=== PATIENT | male | born 1960 | race Caucasian/White ===

== ENCOUNTER 2017-02-26 11:44 | Emergency (ER) | payer OTHER ==
[~2017-02-26] VITALS: Ht 185.4 cm; Wt 94.0 kg
[~2017-02-26 11:44] MED LIST: AMBI5TAB PO; ASPI325T PO; AZOR5TAB4 PO; BACT800T5 PO; DOXY100T PO; MOBI15TA PO
[2017-02-26 12:00] VITALS: BP 144/71; PULSE 75; RESP 16; TEMP 98.3; O2SAT 96
[2017-02-26] MEDS ORDERED: SULFAMETHOXAZOLE-TRIMETHOPRIM DS 800-160 MG TAB PO ONE (13:00)
[2017-02-26] MEDS ORDERED: CEPHALEXIN MONOHYDRATE 500 MG CAP PO ONE (13:00)
[2017-02-26] MEDS ORDERED: BACT800T5 PO (13:03)
[2017-02-26] MEDS ORDERED: CEPH-460 PO (13:03)
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
[2017-02-26 13:20] VITALS: BP 111/66; PULSE 67; RESP 14; O2SAT 99
== END 2017-02-26 13:34 | disposition home or self-care (01) ==
LOC: PHED 11:44
DX: L03.113 Cellulitis of right upper limb (principal); I10 Essential (primary) hypertension; I25.2 Old myocardial infarction; Z87.39 Personal history of other diseases of the musculoskeletal system and connective tissue; Z86.59 Personal history of other mental and behavioral disorders; Z86.79 Personal history of other diseases of the circulatory system
CPT/HCPCS: 99283

== ENCOUNTER 2017-04-20 22:36 | Inpatient (IN) | payer SELFPAY ==
[~2017-04-20] VITALS: Ht 185.4 cm; Wt 99.2 kg
[~2017-04-20 22:36] MED LIST changes: -AMBI5TAB PO; -ASPI325T PO; -AZOR5TAB4 PO; +CEPH-460 PO; -DOXY100T PO; -MOBI15TA PO
[2017-04-20 22:41] VITALS: BP 119/88; PULSE 181; RESP 20; TEMP 98.2; O2SAT 95
[2017-04-20 22:42] VITALS: BP 110/90; PULSE 182; RESP 20; O2SAT 98
[2017-04-20] MEDS ORDERED: ADENOSINE IV SOLN 3 MG/ML 2 ML VIAL IV PUSH ONE (23:00)
[2017-04-20] MEDS ORDERED: SODIUM CHLORIDE 0.9% FLUSH 10 ML FLUSH IVF PRN (23:00)
[2017-04-20] MEDS ORDERED: SODIUM CHLOR 0.9% 1000 ML INJ 1,000 ML IV SCH ×2 (23:00→23:45)
[2017-04-20 23:02] VITALS: BP 137/91; PULSE 94; RESP 18; O2SAT 96
[2017-04-20 23:07] LABS: AUTOMATED NEUTROPHIL # 4.2 TH/MM3 (1.8-7.7); BASOPHIL # 0.1 TH/MM3 (0-0.2); BASOPHIL % 1.1 % (0.0-2.0); EOSINOPHIL # 0.1 TH/MM3 (0-0.4); EOSINOPHIL % 1.2 % (0.0-4.0); HEMATOCRIT 36.3 % (39.0-51.0); LYMPH % 17.2 % (9.0-44.0); MEAN CELL VOLUME 75.4 FL (80.0-100.0); MEAN CORPUSCULAR HEMOGLOBIN 24.3 PG (27.0-34.0); MEAN CORPUSCULAR HGB CONC 32.2 % (32.0-36.0); MONO % 8.1 % (0.0-8.0); NEUT % 72.4 % (16.0-70.0); PLATELET COUNT 278 TH/MM3 (150-450); RED BLOOD COUNT 4.81 MIL/MM3 (4.50-5.90); RED CELL DISTRIBUTION WIDTH 20.5 % (11.6-17.2); WHITE BLOOD COUNT 5.9 TH/MM3 (4.0-11.0)
[2017-04-20 23:11] LABS: HEMO FLAGS AUTO DIFF
[2017-04-20 23:21] LABS: CHLORIDE 103 MEQ/L (98-107); POTASSIUM 4.6 MEQ/L (3.5-5.1); SODIUM (NA) 138 MEQ/L (136-145)
--- NOTE | 2017-04-20 23:21 | RADRPT ---
EXAM DATE/TIME: 04/20/2017 23:10 [place] COMPARISON: CHEST SINGLE AP, September 21, 2015, 21:54. INDICATIONS : Chest pain. MEDICAL HISTORY : None. SURGICAL HISTORY : None. ENCOUNTER: Initial ACUITY: 1 day PAIN SCORE: 7/10 LOCATION: Bilateral chest FINDINGS: A single view of the chest demonstrates diminished lung volumes. Bibasilar subsegmental atelectasis v ersus scarring. Heart normal in size. Osseous structures are intact. CONCLUSION: 1. Bibasilar subsegmental atelectasis versus scarring greater in the right lower lobe. Demetrius Moreno MD on April 20, 2017 at 23:18 Board Certified Radiologist. This report was verified electronically.
[2017-04-20 23:25] LABS: ANION GAP 9 MEQ/L (5-15); BICARBONATE 26.4 MEQ/L (21.0-32.0)
[2017-04-20 23:26] LABS: BLOOD UREA NITROGEN 16 MG/DL (7-18)
[2017-04-20 23:28] LABS: ALT (GPT) 19 U/L (12-78)
[2017-04-20 23:29] LABS: AST (GOT) 17 U/L (15-37); GLOMERULAR FILTRATION RATE 69 ML/MIN (>89)
[2017-04-20 23:30] LABS: TOTAL BILIRUBIN ADULT 0.2 MG/DL (0.2-1.0)
[2017-04-20 23:31] LABS: ALKALINE PHOSPHATASE 115 U/L (45-117)
[2017-04-20 23:32] LABS: PLATELET ESTIMATE SMEAR NORMAL (NORMAL); PLATELET MORPHOLOGY NORMAL (NORMAL); SCAN/DIFF AUTO DIFF CONFIRMED
[2017-04-20 23:33] LABS: APTT (PATIENT) 30.8 SEC (24.3-30.1); PROTHROMBIN TIME - PATIENT 10.9 SEC (9.8-11.6)
[2017-04-20 23:42] LABS: CREATINE KINASE 31 U/L (39-308)
[2017-04-20] MEDS ORDERED: VANCOMYCIN INJ 1,000 MG in SODIUM CHLOR 0.9% 250 ML INJ 250 ML IV ONE (23:45)
[2017-04-20] MEDS ORDERED: PIPERACIL-TAZO 3.375 GM PREMIX 50 ML IV ONE (23:45)
[2017-04-20 23:48] VITALS: BP 125/72; PULSE 88; RESP 16; O2SAT 92
--- NOTE | 2017-04-20 23:51 | PD ---
HPI Chief Complaint: Cardiac Complaint Time Seen by Provider: 22:50 Travel History International Travel<30 days: No Contact w/Intl Traveler<30days: No Traveled to known affect area: No History of Present Illness HPI 56-year-old man, presents to the emergency department complaining of feeling his heart was fluttering. He states he had symptoms last night. The Neurontin happening in tonight new or worsened typical. He is a chronic wound on the right hand is been bothering him off and on for some time. She worse recently and he was placed on antibiotics in the past several days. He still taking antibiotics for that. He states despite that the pain drainage from the hand is been getting worse. He has a little bit tightness in his chest but no actual chest pain. He reports a history of IV drug use but nothing recently. Denies any recent illicit drug use. States he is a history of chronic back and neck problems and list multiple musculoskeletal conditions and rheumatoid arthritis. Denies any history of heart or lung problems. He states one time and is in the hospital he had trouble with an abnormal rhythm. History Past Medical History Narrative Medical History of IV drug use in the past Extensive muscular skeletal surgeries and injuries in the past Stated history of rheumatoid arthritis Review of records shows previous HI in 2006 Social History Alcohol Use: No Tobacco Use: No Allergies-Medications (Allergen,Severity, Reaction): Coded Allergies: No Known Allergies (Verified , 04/20/17) Reported Meds & Prescriptions Reported Meds & Active Scripts Active Keflex (Cephalexin) 500 Mg Cap 500 Mg PO Q6H 14 Days Bactrim DS (Sulfamethoxazole-Trimethoprim) 800-160 Mg Tab 1 Tab PO BID 14 Days Review of Systems Except as stated in HPI: all other systems reviewed are Neg Physical Exam Narrative GENERAL: Is an ill appearing 56 year-old man, pale clammy. SKIN: Focused skin assessment warm/dry. HEAD: Atraumatic. Normocephalic. EYES: Pupils equal and round. Scleral pallor. ENT: No nasal bleeding or discharge. Mucous membranes pink and moist. NECK: Trachea midline. No JVD. CARDIOVASCULAR: Heart rate rapid in the 180s. No appreciable murmur. Perfusion is overall poor. RESPIRATORY: No accessory muscle use. Clear to auscultation. Breath sounds equal bilaterally. GASTROINTESTINAL: Abdomen soft, non-tender, nondistended. Hepatic and splenic margins not palpable. MUSCULOSKELETAL: No obvious deformities. No edema. Extensive scarring on his upper extremities. Some of this appears to be from track [place]an[place], a lot of it appears to be from previous musculoskeletal injuries or possibly I&D surgeries. On the dorsum of the right hand there is a large ulcerated chronic appearing wound was undermined edges. Surrounding this is acute erythema with patchy erythematous migrating up the arm. NEUROLOGICAL: Awake and alert. No obvious cranial nerve deficits. Motor grossly within normal limits. Normal speech. PSYCHIATRIC: Appropriate mood and affect; insight and judgment normal. Data Data Last Documented VS Vital Signs Date Time Temp Pulse Resp B/P Pulse Ox O2 Delivery O2 Flow Rate FiO2 04/20/17 23:48 88 16 125/72 92 Room Air 04/20/17 22:41 98.2 Orders Electrocardiogram (04/20/17 22:50) Ckmb (Isoenzyme) Profile (04/20/17 22:50) Complete Blood Count With Diff (04/20/17 22:50) Comprehensive Metabolic Panel (04/20/17 22:50) Magnesium (Mg) (04/20/17 22:50) Prothrombin Time / Inr (Pt) (04/20/17 22:50) Act Partial Throm Time (Ptt) (04/20/17 22:50) Troponin I (04/20/17 22:50) Chest, Single Ap (04/20/17 22:50) Ecg Monitoring (04/20/17 22:50) Iv Access Insert/Monitor (04/20/17 22:50) Oximetry (04/20/17 22:50) Oxygen Administration (04/20/17 22:50) Sodium Chloride 0.9% Flush (Ns Flush) (04/20/17 23:00) Sodium Chlor 0.9% 1000 Ml Inj (Ns 1000 M (04/20/17 23:00) Adenosine Inj (Adenocard Inj) (04/20/17 23:00) Drug Screen, Random Urine (04/20/17 22:53) Vancomycin Inj (Vancomycin Inj) (04/20/17 23:45) Piperacil-Tazo 3.375 Gm Premix (Zosyn 3. (04/20/17 23:45) Blood Culture (04/20/17 23:40) Sodium Chlor 0.9% 1000 Ml Inj (Ns 1000 M (04/20/17 23:45) Admit Order (Ed Use Only) (04/21/17 ) Piperacil-Tazo 3.375 Gm Premix (Zosyn 3. (04/21/17 00:15) Vancomycin Consult Pharmacy (Vancomycin (04/21/17 00:15) Labs Laboratory Tests Test 04/20/17 23:00 White Blood Count 5.9 TH/MM3 Red Blood Count 4.81 MIL/MM3 Hemoglobin 11.7 GM/DL Hematocrit 36.3 % Mean Corpuscular Volume 75.4 FL Mean Corpuscular Hemoglobin 24.3 PG Mean Corpuscular Hemoglobin 32.2 % Concent Red Cell Distribution Width 20.5 % Platelet Count 278 TH/MM3 Mean Platelet Volume 6.9 FL Neutrophils (%) (Auto) 72.4 % Lymphocytes (%) (Auto) 17.2 % Monocytes (%) (Auto) 8.1 % Eosinophils (%) (Auto) 1.2 % Basophils (%) (Auto) 1.1 % Neutrophils # (Auto) 4.2 TH/MM3 Lymphocytes # (Auto) 1.0 TH/MM3 Monocytes # (Auto) 0.5 TH/MM3 Eosinophils # (Auto) 0.1 TH/MM3 Basophils # (Auto) 0.1 TH/MM3 CBC Comment AUTO DIFF Differential Comment AUTO DIFF CONFIRMED Platelet Estimate NORMAL Platelet Morphology Comment NORMAL Prothrombin Time 10.9 SEC Prothromb Time International 1.0 RATIO Ratio Activated Partial 30.8 SEC Thromboplast Time Sodium Level 138 MEQ/L Potassium Level 4.6 MEQ/L Chloride Level 103 MEQ/L Carbon Dioxide Level 26.4 MEQ/L Anion Gap 9 MEQ/L Blood Urea Nitrogen 16 MG/DL Creatinine 1.10 MG/DL Estimat Glomerular Filtration 69 ML/MIN Rate Random Glucose 114 MG/DL Calcium Level 9.4 MG/DL Magnesium Level 2.0 MG/DL Total Bilirubin 0.2 MG/DL Aspartate Amino Transf 17 U/L (AST/SGOT) Alanine Aminotransferase 19 U/L (ALT/SGPT) Alkaline Phosphatase 115 U/L Total Creatine Kinase 31 U/L Troponin I LESS THAN 0.02 NG/ML Total Protein 8.6 GM/DL Albumin 3.4 GM/DL MDM Medical Decision Making Medical Screen Exam Complete: Yes Emergency Medical Condition: Yes Interpretation(s) My review of initial EKG: SVT a rate of 179, no obvious ischemia. Normal axis. My review of repeat EKG following chemical cardioversion: Normal sinus rhythm at a rate of 88, normal axis, normal intervals, no acute ischemia. LABS: CBC remarkable for mild anemia. CMP generally unremarkable. Troponin negative. Elevated total protein Chest x-ray: Bibasilar subsegmental atelectasis versus scarring, greater in the right lower lobe. Differential Diagnosis Infection, bacteremia or sepsis, SVT, adverse effect of illicit drugs, sedative hypnotic withdrawal, other Narrative Course Medical decision-making this is a 56 year woman who presents to the emergency department in [place] with an ill appearance. IV access was difficult to multiple previous upper extremity surgeries and history of IV drug use. Some suspicion that he may still be using the patient denies. He has worsening cellulitis in his right hand is not responding outpatient Bactrim and Keflex. Distress may have been what prompted the SVT. SVT resolved with adenosine but I think he needs to be admitted for worsening right upper extremity cellulitis. Procedures Procedure Narrative Peripheral IV access: Nursing staff unable to establish IV access. Emergent IV access needed for cardioversion. Right EJ was prepped with chlorhexidine. Initial attempt with a 20 was unsuccessful. Second attempt with Valsalva was successful. Blood obtained for diagnostic testing. Patient tolerated well. Chemical cardioversion: Patient was placed on continuous monitoring. Patient was placed on defibrillator monitor. IV access was established. 6 kg of IV adenosine was given rapid IV push followed by 20 mL normal saline flush. Patient was successfully cardioverted to normal sinus rhythm. Diagnosis Primary Impression: SVT (supraventricular tachycardia) Additional Impression: Cellulitis of right upper extremity Admitting Information Admitting Physician Requests: Romero Ramos MD Apr 20, 2017 23:51
[2017-04-21] VITALS (7 sets, daily range): BP systolic 97–137; BP diastolic 59–79; PULSE 59–78; RESP 16–18; TEMP 96.7–97.8; O2SAT 94–100
[2017-04-21] MEDS ORDERED: ACETAMINOPHEN 325 MG TAB PO PRN (00:15)
[2017-04-21] MEDS ORDERED: MAGNESIUM HYDROXIDE SUSP 30 ML CUP PO PRN (00:15)
[2017-04-21] MEDS ORDERED: Vancomycin Consult Pharmacy 1 EA OTHER SCH (00:15)
[2017-04-21] MEDS ORDERED: SODIUM CHLORIDE 0.9% FLUSH 10 ML FLUSH IV FLUSH PRN (00:15)
[2017-04-21] MEDS ORDERED: SENNOSIDES 8.6 MG TAB PO PRN (00:15)
[2017-04-21] MEDS ORDERED: ASPI81CH CHEW (01:09)
[2017-04-21] MEDS ORDERED: MORP1TAB24 PO (01:09)
[2017-04-21] MEDS ORDERED: OXYC-396 PO (01:09)
[2017-04-21] MEDS ORDERED: CYCL1TAB29 PO (01:09)
[2017-04-21] MEDS ORDERED: VANCOMYCIN 1,000 MG/NS 250 ML IV ONE ×2 (03:05)
[2017-04-21] MEDS ORDERED: MORPHINE SULFATE 4 MG/ML INJ IV PUSH PRN (03:15)
[2017-04-21] MEDS: MORPHINE SULFATE 8 MG/ML INJ IV PUSH PRN ×2 (03:24→08:56)
[2017-04-21] MEDS: PIPERACIL-TAZO 3.375 GM PREMIX 50 ML IV SCH ×3 (05:33→17:32)
[2017-04-21 06:36] LABS: POTASSIUM 4.4 MEQ/L (3.5-5.1)
[2017-04-21 06:44] LABS: BICARBONATE 29.8 MEQ/L (21.0-32.0)
[2017-04-21 06:53] LABS: AUTOMATED NEUTROPHIL # 2.5 TH/MM3 (1.8-7.7); BASOPHIL % 0.6 % (0.0-2.0); EOSINOPHIL # 0.1 TH/MM3 (0-0.4); EOSINOPHIL % 2.1 % (0.0-4.0); HEMATOCRIT 29.7 % (39.0-51.0); LYMPHOCYTE # 0.9 TH/MM3 (1.0-4.8); MEAN CELL VOLUME 75.1 FL (80.0-100.0); MEAN CORPUSCULAR HEMOGLOBIN 24.7 PG (27.0-34.0); MEAN CORPUSCULAR HGB CONC 32.8 % (32.0-36.0); NEUT % 62.3 % (16.0-70.0); PLATELET COUNT 247 TH/MM3 (150-450); RED BLOOD COUNT 3.95 MIL/MM3 (4.50-5.90); RED CELL DISTRIBUTION WIDTH 20.5 % (11.6-17.2); WHITE BLOOD COUNT 3.9 TH/MM3 (4.0-11.0)
[2017-04-21 06:54] LABS: HEMO FLAGS AUTO DIFF
[2017-04-21 07:06] LABS: CREATINE KINASE 23 U/L (39-308)
[2017-04-21 07:30] LABS: SCAN/DIFF AUTO DIFF CONFIRMED
[2017-04-21] MEDS: ENOXAPARIN SODIUM 40 MG/0.4 ML SYRINGE SQ SCH (08:54)
[2017-04-21] MEDS: SODIUM CHLORIDE 0.9% FLUSH 10 ML FLUSH IV FLUSH SCH ×2 (08:56→21:00)
--- NOTE | 2017-04-21 08:57 | EKG ---
Date Performed: 04/21/2017 Time Performed: 04:45:19 PTAGE: 56 years EKG: Sinus rhythm NORMAL ECG PREVIOUS TRACING : 04/20/2017 23.06 DOCTOR: Romero Love Interpretating Date/Time 04/21/2017 08:55:29
--- NOTE | 2017-04-21 09:16 | EKG ---
Date Performed: 04/20/2017 Time Performed: 23:06:03 PTAGE: 56 years EKG: Sinus rhythm NORMAL ECG PREVIOUS TRACING : 04/20/2017 22.50 DOCTOR: Romero Love Interpretating Date/Time 04/21/2017 09:16:06
--- NOTE | 2017-04-21 09:19 | EKG ---
Date Performed: 04/20/2017 Time Performed: 22:50:20 PTAGE: 56 years EKG: SUPRAVENTRICULAR TACHYCARDIA ABNORMAL RHYTHM ECG INTERPRETATION BASED ON A DEFAULT AGE OF 4 0 YEARS PREVIOUS TRACING : 12/26/2014 18.53 DOCTOR: Romero Love Interpretating Date/Time 04/21/2017 09:18:34
[2017-04-21 11:21] LABS: CREATINE KINASE 24 U/L (39-308)
--- NOTE | 2017-04-21 11:53 | HHI.HP ---
[facility] Service [facility] Primary Care Physician No Primary Care Physician Admission Diagnosis cellulitis, SVT Diagnoses: (1) SVT (supraventricular tachycardia) Diagnosis: Principal (2) Open wound of right hand Diagnosis: Principal (3) Chronic pain Diagnosis: Secondary Chief Complaint: Heart racing Travel History International Travel<30 Days: No Contact w/Intl Traveler <30 Da: No Traveled to Known Affected Are: No History of Present Illness Written by Gerardo Mujica, acting as scribe for Dr. Johnston on 04/21/17 at 11:52. 56 year-old male with known history of chronic pain, chronic wound of the right hand who presented to hospital because of heart racing and palpitations. Patient states that his normal state of health until last evening at approximately 8 PM when he started noticing his heart was racing. He indicates that he has noticed a couple times in the last few weeks. But it remained persistent last night so he came to emergency department for evaluation. Patient was found to have SVTs and was chemically cardioverted last evening with adenosine 6 mg IV. Patient indicates that he has gone to a medical facilities section director in the past but does not recall the name. Patient was noted to have a wound on his right anterior hand by ER physician. Patient states that this has been persistent since October of this year. Patient indicates that he was given outpatient antibiotics and did improve but does continue to return. He indicates that the original abnormality was secondary to a brown recluse spider bite. Patient denied any chest pain, nausea, vomiting, diaphoresis, lightheadedness, dizziness. He denies any fever, chills. Patient requesting that we continue his pain medication because he ran out of them a day ago. Review of Systems Constitutional: DENIES: Diaphoretic episodes, Fatigue, Fever, Weight gain, Weight loss, Chills, Dizziness, Change in appetite, Night Sweats Eyes: DENIES: Blurred vision, Diplopia, Eye inflammation, Eye pain, Vision loss , Double Vision Ears, nose, mouth, throat: DENIES: Hearing loss, Nasal discharge, Throat pain, Ear Pain, Running Nose, Sinus Pain Respiratory: DENIES: Apneas, Cough, Snoring, Wheezing, Hemoptysis, Sputum production, Shortness of breath Cardiovascular: COMPLAINS OF: Palpitations, DENIES: Chest pain, Syncope, Dyspnea on Exertion, Lower Extremity Edema, Orthopnea Gastrointestinal: DENIES: Abdominal pain, Black stools, Bloody stools, Constipation, Diarrhea, Nausea, Vomiting, Difficulty Swallowing, Anorexia Neurologic: DENIES: Abnormal gait, Headache, Localized weakness, Paresthesias, Seizures, Speech Problems, Tremor, Poor Balance Past Family Social History Past Medical History Chronic right hand wound Chronic pain History of IV drug use Rheumatoid arthritis Past Surgical History Cardiac catheterization Right tibia and patella repair Left hip and arm repair Back surgery Reported Medications Reported Meds & Active Scripts Active Keflex (Cephalexin) 500 Mg Cap 500 Mg PO Q6H 14 Days Bactrim DS (Sulfamethoxazole-Trimethoprim) 800-160 Mg Tab 1 Tab PO BID 14 Days Reported Aspirin 81 Mg Chew 81 Mg CHEW DAILY Morphine ER (Morphine Sulfate) 15 Mg Tab 15 Mg PO BID Oxycodone (Oxycodone HCl) 20 Mg Tab 20 Mg PO Q6H PRN Flexeril (Cyclobenzaprine HCl) 10 Mg Tab 10 Mg PO TID Allergies: Coded Allergies: No Known Allergies (Verified , 04/20/17) Family History Reviewed is significant for father having early onset heart disease in his 40s with myocardial infarction Social History Patient denies any tobacco, alcohol use. He does have history of IV drug use in which he states that he has quit for over 3 years Physical Exam Vital Signs Vital Signs Date Time Temp Pulse Resp B/P Pulse Ox O2 Delivery O2 Flow Rate FiO2 04/21/17 09:01 20 04/21/17 08:00 97.1 64 18 109/79 100 04/21/17 04:00 96.7 70 16 97/59 97 04/21/17 02:41 78 04/21/17 01:20 96.8 77 18 121/79 100 04/20/17 23:48 88 16 125/72 92 Room Air 04/20/17 23:02 94 18 137/91 96 Room Air 04/20/17 22:42 182 18 97 Room Air 04/20/17 22:42 182 20 110/90 98 Room Air 04/20/17 22:41 98.2 181 20 119/88 95 Physical Exam GENERAL: Well-developed, well-nourished, in no acute distress. alert and orientated HEENT: Head is normocephalic without any lesions or masses noted. Facial features are symmetric. Eyes: Pupils equal round reactive to light. Extraocular muscles are intact. Conjunctivae were clear. Oropharyngeal: Pharynx without any erythema edema. Tongue is midline without deviation. Buccal mucosa is moist without any masses or lesions NECK: Supple without any masses. Trachea midline no deviation. No JVD, no bruits are appreciated CARDIAC: Regular rhythm, regular rate. S1/S2 are heard. No murmurs gallops or rubs. LUNGS: Clear to auscultation bilaterally. No wheeze, rhonchi or rales. No use of accessory muscles on inspiration or expiration. ABDOMEN: Soft, nontender. Nondistended. Bowel sounds heard in all 4 quadrants. No organomegaly or masses. Negative rebound, negative guarding EXTREMITIES: No edema, pulses are equal bilaterally. No cyanosis or clubbing NEUROLOGY: Mood and affect appear appropriate. Cranial nerves II through XII grossly intact. Muscle strength 5/5 in upper and lower extremities bilaterally. Deep tendon reflexes are 2+ in upper and lower extremities bilaterally. RIGHT HAND: Patient has rather impressive wound located on almost complete surface of anterior right hand. It does appear to be in multiple stages of healing, difficult to tell if there is any exudates due to cream that has been applied. Laboratory Laboratory Tests Test 04/20/17 04/21/17 04/21/17 23:00 05:43 10:45 White Blood Count 5.9 3.9 Red Blood Count 4.81 3.95 Hemoglobin 11.7 9.7 Hematocrit 36.3 29.7 Mean Corpuscular Volume 75.4 75.1 Mean Corpuscular Hemoglobin 24.3 24.7 Mean Corpuscular Hemoglobin 32.2 32.8 Concent Red Cell Distribution Width 20.5 20.5 Platelet Count 278 247 Mean Platelet Volume 6.9 7.2 Neutrophils (%) (Auto) 72.4 62.3 Lymphocytes (%) (Auto) 17.2 24.0 Monocytes (%) (Auto) 8.1 11.0 Eosinophils (%) (Auto) 1.2 2.1 Basophils (%) (Auto) 1.1 0.6 Neutrophils # (Auto) 4.2 2.5 Lymphocytes # (Auto) 1.0 0.9 Monocytes # (Auto) 0.5 0.4 Eosinophils # (Auto) 0.1 0.1 Basophils # (Auto) 0.1 0.0 CBC Comment AUTO DIFF AUTO DIFF Differential Comment AUTO DIFF AUTO DIFF CONFIRMED CONFIRMED Platelet Estimate NORMAL Platelet Morphology Comment NORMAL Prothrombin Time 10.9 Prothromb Time International 1.0 Ratio Activated Partial 30.8 Thromboplast Time Sodium Level 138 142 Potassium Level 4.6 4.4 Chloride Level 103 105 Carbon Dioxide Level 26.4 29.8 Anion Gap 9 7 Blood Urea Nitrogen 16 17 Creatinine 1.10 1.00 Estimat Glomerular Filtration 69 77 Rate Random Glucose 114 110 Calcium Level 9.4 8.6 Magnesium Level 2.0 Total Bilirubin 0.2 Aspartate Amino Transf 17 (AST/SGOT) Alanine Aminotransferase 19 (ALT/SGPT) Alkaline Phosphatase 115 Total Creatine Kinase 31 23 24 Troponin I LESS THAN 0.02 LESS THAN 0.02 LESS THAN 0.02 Total Protein 8.6 Albumin 3.4 Red Cell Morphology Comment NORMAL Date/Time Procedure Status Source Growth 04/20/17 00:10 Aerobic Blood Culture Received Blood Peripheral Pending 04/20/17 00:10 Anaerobic Blood Culture Received Blood Peripheral Pending Result Diagram: 04/21/17 0543 04/21/17 0543 Imaging Last Impressions Chest X-Ray 04/20/170 Signed Impressions: Service Date/Time: Thursday, April 20, 2017 23:10 - CONCLUSION: 1. Bibasilar subsegmental atelectasis versus scarring greater in the right lower lobe. Demetrius Moreno MD Assessment and Plan Problem List: (1) SVT (supraventricular tachycardia) ICD Code: I47.1 Status: Resolved Plan: Patient was successfully chemically cardioverted with adenosine in emergency department Continue telemetry Consult cardiology for recommendations (2) Open wound of right hand ICD Code: S61.401A Status: Acute Plan: This is a chronic wound with patient states that has been present since October of this year Hand specialist has been consulted and evaluated the patient indicating that wound may be secondary to pyoderma gangrenosum, they're recommending initiation of steroid and wound care MRI be done for further evaluation Wound care nurse has been consulted for recommendations Wound culture will be ascertained Continue vancomycin and Zosyn at this time until cultures are available (3) Leukopenia ICD Code: D72.819 Status: Acute Plan: Unknown etiology this time Continue monitor CBC (4) Chronic pain ICD Code: G89.29 Status: Chronic Plan: Did review patient's prescription history on E force Resume patient's home medication to include oxycodone 20 mg every 6 hours as needed, morphine sulfate extended release 15 mg twice daily Assessment and Plan DVT prevention Lovenox This note was transcribed by mara Mujica. I, Dr. Umair Jimenez personally performed the history, physical exam, and medical decision making; and confirmed the accuracy of the information in the transcribed note. Authenticated by Dr. Umair Jimenez on 04/21/17 at 14:11. Physician Certification 2 Midnight Certification Type: Admission for Inpatient Services Order for Inpatient Services The services are ordered in accordance with Medicare regulations or non- Medicare payer requirements, as applicable. In the case of services not specified as inpatient-only, they are appropriately provided as inpatient services in accordance with the 2-midnight benchmark. Estimated LOS (days): 2 days is the estimated time the patient will need to remain in the hospital, assuming treatment plan goals are met and no additional complications. Post-Hospital Plan: Not yet determined Problem Qualifiers (1) Open wound of right hand: (2) Chronic pain: Qualified Code: G89.29 - Other chronic pain Gerardo Mujica Apr 21, 2017 11:53 Umair Espinosa MD Apr 21, 2017 14:11
[2017-04-21] MEDS: MORPHINE SULFATE 15 MG CONTROLLED RELEASE TAB PO SCH (12:26)
--- NOTE | 2017-04-21 12:43 | MB ---
cc: MARTHA TEJEDA M.D. DATE OF CONSULTATION: 04/21/2017 The patient is being seen at the request of Dr. Umair Robles. REASON FOR CONSULTATION Wound of right hand. HISTORY OF PRESENT ILLNESS The patient is a 56-year-old male with a history of chronic wound pain with open wound of his right hand which has been present since October. The patient was recently admitted due to cardiac issues. His principal diagnoses are supraventricular tachycardia, open wound of the right hand and chronic pain. Consultation is requested for evaluation and treatment of the hand. The patient does note that the wound of the right hand has been open since October. He does indicate that they may have been biopsied but there is no indication of that in the record. REVIEW OF SYSTEMS The patient denies any positive symptoms related to his hand. Otherwise positive for palpitations. PAST MEDICAL HISTORY Significant for: 1. Chronic right hand wound. 2. The patient does have a history of chronic pain. 3. History of IV drug abuse. 4. History of rheumatoid arthritis. PAST SURGICAL HISTORY 1. Cardiac catheterization. 2. Right tibia and patella repair. 3. Left hip and arm repair. 4. Back surgery. MEDICATION Listed on the chart. ALLERGIES None. FAMILY HISTORY Noncontributory. SOCIAL HISTORY The patient notes that he has a history of IV drug abuse but that he has not used it for over 3 years. PHYSICAL EXAMINATION GENERAL: On examination, the patient is lying comfortably in bed. VITAL SIGNS: Temperature is 97.1, pulse 64, respirations 18, blood pressure 109/79 with a pulse oximetry of 100. HEENT: His extraocular muscles are intact. Pupils are equal, round and reactive to light. His mouth is clear. NECK: His neck is supple without masses. LUNGS: Clear. HEART: His heart rate today is regular. HAND: Examination of his hand reveals an open wound on the dorsal aspect of his right hand. The edges are regular. He has full range of motion of his fingers. There is adequate perfusion of the hand, although there is some swelling of his fingers. There is no radiographic examinations of his hand available today or recently. LABORATORY DATA His white count was 5.9 on admission, today it is 3.9. He did come in with evidence of a shift, but today his neutrophils are 62.3%. IMPRESSION The patient has an open wound of the dorsal aspect of his right hand. This may be pyoderma gangrenosum. There may also be a malignancy. I do not believe that it is the result of a spider bite. PLAN The patient should be on a course of intravenous steroids to see if there is response. Biopsy of the tissue itself would help to lineate whether or not it is a malignancy. We will follow along with you with this patient. MD MARCELLO Fallon/ARLETTE /12:09 PM /12:24 PM
[2017-04-21] MEDS: VANCOMYCIN 1,500 MG/NS 500 ML IV SCH ×2 (14:08)
[2017-04-21] MEDS ORDERED: GADODIAMIDE PF 287 MG/ML 20 ML VIAL (for RAD MRI) IV ONE (14:45)
--- NOTE | 2017-04-21 15:45 | RADRPT ---
EXAM DATE/TIME: 04/21/2017 14:26 [facility] COMPARISON: No previous studies available for comparison. INDICATIONS : Right hand swelling on posterior surface of palm about the distal 3-4 metecarpal post spider bite in October. CONTRAST: 19 cc Omniscan (gadodiamide) IV MEDICAL HISTORY : None. SURGICAL HISTORY : Lumbar surgery, Lt hip surgery to remove a turmor, left arm ENCOUNTER: Subsequent ACUITY: 7-11 months PAIN SCORE: 6/10 LOCATION: Right hand TECHNIQUE: Multiplanar, multisequence MRI examination was performed without contrast and after the intravenous a dministration of gadolinium. FINDINGS: BONE/CARTILAGE: Bone marrow signal is homogeneous. Articular cartilage signal is within normal limits. TENDONS: All of the visualized tendons are intact. MISCELLANEOUS: There is nonspecific edema in the subcutaneous soft tissues along the dorsal surface of the hand. The re appears to be a tiny 5 mm pocket of fluid in the soft tissues near the distal fourth metacarpal. H owever, the fluid is very superficial just underneath the skin. POST-CONTRAST: There are no abnormal areas of enhancement on the post-contrast images. CONCLUSION: 1. Nonspecific edema and soft tissue swelling in the subcutaneous soft tissues along the dorsum of th e hand. 2. Tiny superficial 5 mm pocket of fluid just in the skin in the distal fourth metacarpal. 3. No evidence of osteomyelitis. Harvinder Huggins MD on April 21, 2017 at 15:38 Board Certified Radiologist. This report was verified electronically.
[2017-04-21] MEDS: methylPREDNISolone SO SUCC INJ 1,000 MG in DEXTROSE 5% IN WATER 100ML INJ 100 ML IV SCH ×2 (18:08)
[2017-04-21] MEDS: POVIDONE IODINE 10% OINT 30 GM TUBE TOPICAL SCH (21:00)
[2017-04-22 00:30] VITALS: BP 140/79; PULSE 61; RESP 16; TEMP 97.1; O2SAT 100
[2017-04-22] MEDS: PIPERACIL-TAZO 3.375 GM PREMIX 50 ML IV SCH ×6 (00:40→23:31)
[2017-04-22] MEDS: MORPHINE SULFATE 15 MG CONTROLLED RELEASE TAB PO SCH ×3 (00:41→23:31)
[2017-04-22] MEDS: VANCOMYCIN 1,500 MG/NS 500 ML IV SCH ×4 (03:26→19:31)
[2017-04-22 04:00] VITALS: BP 131/72; PULSE 70; RESP 18; TEMP 97.2; O2SAT 96
[2017-04-22] MEDS: ONDANSETRON HCL 4 MG/2 ML VIAL IVP PRN (06:33)
[2017-04-22 08:58] VITALS: BP 146/80; PULSE 71; RESP 16; TEMP 97; O2SAT 97
[2017-04-22] MEDS: ENOXAPARIN SODIUM 40 MG/0.4 ML SYRINGE SQ SCH (09:12)
[2017-04-22] MEDS: SODIUM CHLORIDE 0.9% FLUSH 10 ML FLUSH IV FLUSH SCH ×2 (09:13→21:00)
[2017-04-22] MEDS: POVIDONE IODINE 10% OINT 30 GM TUBE TOPICAL SCH ×2 (09:13→23:32)
[2017-04-22 10:50] LABS: AUTOMATED NEUTROPHIL # 2.6 TH/MM3 (1.8-7.7); BASOPHIL % 0.8 % (0.0-2.0); HEMATOCRIT 33.3 % (39.0-51.0); LYMPH % 17.3 % (9.0-44.0); LYMPHOCYTE # 0.5 TH/MM3 (1.0-4.8); MEAN CELL VOLUME 75.3 FL (80.0-100.0); MEAN CORPUSCULAR HEMOGLOBIN 24.2 PG (27.0-34.0); MEAN CORPUSCULAR HGB CONC 32.2 % (32.0-36.0); MONO % 1.7 % (0.0-8.0); NEUT % 79.2 % (16.0-70.0); PLATELET COUNT 255 TH/MM3 (150-450); RED BLOOD COUNT 4.43 MIL/MM3 (4.50-5.90); WHITE BLOOD COUNT 3.2 TH/MM3 (4.0-11.0)
[2017-04-22 11:00] LABS: CHLORIDE 108 MEQ/L (98-107); POTASSIUM 3.7 MEQ/L (3.5-5.1); SODIUM (NA) 143 MEQ/L (136-145)
[2017-04-22 11:06] LABS: HEMO FLAGS AUTO DIFF
[2017-04-22 11:07] LABS: ANION GAP 9 MEQ/L (5-15); BICARBONATE 25.9 MEQ/L (21.0-32.0); BLOOD UREA NITROGEN 11 MG/DL (7-18)
[2017-04-22 11:10] LABS: ALT (GPT) 19 U/L (12-78); AST (GOT) 17 U/L (15-37); GLOMERULAR FILTRATION RATE 83 ML/MIN (>89)
[2017-04-22 11:12] LABS: TOTAL BILIRUBIN ADULT 0.2 MG/DL (0.2-1.0)
[2017-04-22 11:13] LABS: ALKALINE PHOSPHATASE 99 U/L (45-117)
[2017-04-22 12:01] LABS: PLATELET ESTIMATE SMEAR NORMAL (NORMAL); PLATELET MORPHOLOGY NORMAL (NORMAL); SCAN/DIFF AUTO DIFF CONFIRMED
--- NOTE | 2017-04-22 13:48 | HHI.PR ---
Subjective Remarks pain controlled denies fevers or chills c/o abdominal discomfort Vital signs stable Objective Vitals Vital Signs Date Time Temp Pulse Resp B/P Pulse Ox O2 Delivery O2 Flow Rate FiO2 04/22/17 08:58 97.0 71 16 146/80 97 04/22/17 04:00 97.2 70 18 131/72 96 04/22/17 00:30 97.1 61 16 140/79 100 04/21/17 20:00 97.1 65 18 133/73 96 04/21/17 16:00 97.3 59 18 116/79 94 04/21/17 15:07 20 04/21/17 13:26 20 I/O 04/21/17 04/21/17 04/21/17 04/22/17 04/22/17 04/22/17 07:00 15:00 23:00 07:00 15:00 23:00 Intake Total 1050 ml 750 ml 240 ml 242 ml Output Total 300 ml 1250 ml Balance 1050 ml 750 ml -60 ml -1008 ml Intake Oral 750 ml 240 ml 242 ml IV Total 1050 ml Output Urine Total 300 ml 1250 ml # Voids 4 # Bowel Movements 0 0 1 Result Diagram: 04/22/17 0820 04/22/17 0820 Imaging Last Impressions Hand MRI 04/21/17 0000 Signed Impressions: Service Date/Time: Friday, April 21, 2017 14:26 - CONCLUSION: 1. Nonspecific edema and soft tissue swelling in the subcutaneous soft tissues along the dorsum of the hand. 2. Tiny superficial 5 mm pocket of fluid just in the skin in the distal fourth metacarpal. 3. No evidence of osteomyelitis. Harvinder Huggins MD Chest X-Ray 04/20/17 6190 Signed Impressions: Service Date/Time: Thursday, April 20, 2017 23:10 - CONCLUSION: 1. Bibasilar subsegmental atelectasis versus scarring greater in the right lower lobe. Demetrius Moreno MD Objective Remarks GENERAL: Well-developed, well-nourished, in no acute distress. alert and orientated HEENT: Head is normocephalic without any lesions or masses noted. Facial features are symmetric. Eyes: Pupils equal round reactive to light. Extraocular muscles are intact. Conjunctivae were clear. Oropharyngeal: Pharynx without any erythema edema. Tongue is midline without deviation. Buccal mucosa is moist without any masses or lesions NECK: Supple without any masses. Trachea midline no deviation. No JVD, no bruits are appreciated CARDIAC: Regular rhythm, regular rate. S1/S2 are heard. No murmurs gallops or rubs. LUNGS: Clear to auscultation bilaterally. No wheeze, rhonchi or rales. No use of accessory muscles on inspiration or expiration. ABDOMEN: Soft, nontender. Nondistended. Bowel sounds heard in all 4 quadrants. No organomegaly or masses. Negative rebound, negative guarding EXTREMITIES: No edema, pulses are equal bilaterally. No cyanosis or clubbing NEUROLOGY: Mood and affect appear appropriate. Cranial nerves II through XII grossly intact. Muscle strength 5/5 in upper and lower extremities bilaterally. Deep tendon reflexes are 2+ in upper and lower extremities bilaterally. RIGHT HAND: Patient has rather impressive wound located on almost complete surface of anterior right hand. It does appear to be in multiple stages of healing, difficult to tell if there is any exudates due to cream that has been applied. Medications and IVs Current Medications Medications (Trade) Dose Ordered Sig/Je Route Start Time Stop Time Status Last Admin Piperacillin Sod/ Tazobactam Sod 50 ml @ 100 mls/hr Q6HR IV 04/21/17 06:00 04/22/17 11:55 (Vancomycin Consult Pharmacy) 0 ml @ 0 mls/hr UNSCH OTHER 04/21/17 00:15 (NS Flush) 2 ml UNSCH PRN IV FLUSH 04/21/17 00:15 (NS Flush) 2 ml BID IV FLUSH 04/21/17 09:00 04/22/17 09:13 (Tylenol) 650 mg Q4H PRN PO 04/21/17 00:15 (Zofran Inj) 4 mg Q6H PRN IVP 04/21/17 00:15 04/22/17 06:33 (Milk Of Magnesia Liq) 30 ml Q12H PRN PO 04/21/17 00:15 (Senokot) 17.2 mg Q12H PRN PO 04/21/17 00:15 Enoxaparin Sodium 40 mg 40 mg Q24H SQ 04/21/17 09:00 04/22/17 09:12 (Vancomycin Inj/ NS 500 ml Inj) 515 ml @ 257.5 mls/ hr Q12H IV 04/21/17 15:00 04/22/17 03:26 Miscellaneous Information SPECIFIC LAB TO BE DRAWN:VANCOMYCIN TROUGH DATE TO... ONCE ONCE .XX 04/23/17 14:45 04/23/17 14:46 (Roxicodone) 20 mg Q6H PRN PO 04/21/17 12:00 04/22/17 11:55 (Oramorph Sr) 15 mg Q12HR PO 04/21/17 12:00 04/22/17 09:13 Povidone Iodine 1 applic 1 applic BID TOPICAL 04/21/17 21:00 04/22/17 09:13 (SoluMEDROL INJ/ D5W 100 ml Inj) 100 ml @ 200 mls/hr Q24H IV 04/21/17 18:00 04/26/17 17:59 04/21/17 18:08 Urinary Catheter: No Vascular Central Line Catheter: No A/P Problem List: (1) SVT (supraventricular tachycardia) ICD Code: I47.1 Status: Acute Plan: Patient was successfully chemically cardioverted with adenosine in emergency department Continue telemetry Consult cardiology for recommendations (2) Open wound of right hand ICD Code: S61.401A Status: Acute Plan: This is a chronic wound with patient states that has been present since October of this year Hand specialist has been consulted and evaluated the patient indicating that wound may be secondary to pyoderma gangrenosum, they're recommending initiation of steroid and wound care MRI negat jack for osteomyelitis. Continue wound care. - Blood cultures negative. - Obtain wound culture. - Continue Solumedrol 1 gram daily x 5 days and then taper dose slowly over several weeks. - Discussed with hand surgery - if no improvement on steroids will need biopsy. (3) Leukopenia ICD Code: D72.819 Status: Acute Plan: Unknown etiology this time - WBC trending down. Continue monitor CBC (4) Chronic pain ICD Code: G89.29 Status: Chronic Plan: Did review patient's prescription history on E force Resumed patient's home medication to include oxycodone 20 mg every 6 hours as needed, morphine sulfate extended release 15 mg twice daily. - Pain controlled. (5) Steroid-induced hyperglycemia ICD Code: R73.9 Status: Acute Plan: Will place on SSI with insulin Novolog. Monitor accuchecks. Check hemoglobin A1C. Assessment and Plan GI prophylaxis: Will add Protonix since patient on high dose steroids now with some abdominal discomfort. DVt Prophylaxis: Lovenox SQ, SCD's Discharge Planning Continue to monitor in the medical floor. DC pending clinical improvement and hand surgery clearance. Problem Qualifiers (1) Open wound of right hand: (2) Chronic pain: Qualified Code: G89.29 - Other chronic pain Umair Espinosa MD Apr 22, 2017 13:48
[2017-04-22 14:20] VITALS: BP 117/82; PULSE 94; RESP 16; TEMP 96.5; O2SAT 97
[2017-04-22] MEDS: PANTOPRAZOLE SOD 40 MG DELAYED RELEASE TAB PO SCH (14:32)
[2017-04-22 16:27] LABS: AMPHETAMINE, URINE NEG (NEG)
[2017-04-22 16:37] LABS: BARBITURATES, URINE NEG (NEG)
[2017-04-22 16:39] LABS: COCAINE, URINE NEG (NEG)
--- NOTE | 2017-04-22 17:59 | EKG ---
Date Performed: 04/21/2017 Time Performed: 10:51:31 PTAGE: 56 years EKG: Sinus rhythm NORMAL ECG PREVIOUS TRACING : 04/21/2017 04.45 Compared to prior tracing no significant change DOCTOR: Gladys Romero Interpretating Date/Time 04/22/2017 17:59:07
[2017-04-22] MEDS: methylPREDNISolone SO SUCC INJ 1,000 MG in DEXTROSE 5% IN WATER 100ML INJ 100 ML IV SCH ×2 (18:21)
[2017-04-22 18:49] VITALS: BP 148/95; PULSE 85; RESP 14; TEMP 96.9; O2SAT 98
[2017-04-22 20:00] VITALS: BP 145/87; PULSE 80; RESP 18; TEMP 97.9; O2SAT 97
[2017-04-22] MEDS ORDERED: TEMAZEPAM 7.5 MG CAP PO ONE (22:15)
[2017-04-23] VITALS: BP 136/81; PULSE 71; RESP 18; TEMP 96.8; O2SAT 97
[2017-04-23 04:00] VITALS: BP 136/80; PULSE 93; RESP 20; TEMP 97.5; O2SAT 99
[2017-04-23] MEDS: PIPERACIL-TAZO 3.375 GM PREMIX 50 ML IV SCH ×3 (05:09→20:14)
[2017-04-23] MEDS: VANCOMYCIN 1,500 MG/NS 500 ML IV SCH ×4 (05:49→16:19)
[2017-04-23 06:16] LABS: AUTOMATED NEUTROPHIL # 5.2 TH/MM3 (1.8-7.7); BASOPHIL % 0.1 % (0.0-2.0); HEMATOCRIT 32.8 % (39.0-51.0); LYMPH % 8.6 % (9.0-44.0); LYMPHOCYTE # 0.5 TH/MM3 (1.0-4.8); MEAN CELL VOLUME 74.4 FL (80.0-100.0); MEAN CORPUSCULAR HEMOGLOBIN 23.8 PG (27.0-34.0); MONO % 1.3 % (0.0-8.0); PLATELET COUNT 314 TH/MM3 (150-450); RED BLOOD COUNT 4.41 MIL/MM3 (4.50-5.90); RED CELL DISTRIBUTION WIDTH 19.8 % (11.6-17.2); WHITE BLOOD COUNT 5.8 TH/MM3 (4.0-11.0)
[2017-04-23 06:22] LABS: HEMO FLAGS AUTO DIFF
[2017-04-23 06:28] LABS: CHLORIDE 108 MEQ/L (98-107); POTASSIUM 3.5 MEQ/L (3.5-5.1); SODIUM (NA) 143 MEQ/L (136-145)
[2017-04-23 06:36] LABS: ANION GAP 10 MEQ/L (5-15); BICARBONATE 25.5 MEQ/L (21.0-32.0); BLOOD UREA NITROGEN 15 MG/DL (7-18)
[2017-04-23 06:38] LABS: TOTAL BILIRUBIN ADULT 0.2 MG/DL (0.2-1.0)
[2017-04-23 06:39] LABS: ALT (GPT) 16 U/L (12-78); AST (GOT) 10 U/L (15-37); GLOMERULAR FILTRATION RATE 78 ML/MIN (>89)
[2017-04-23 06:40] LABS: ALKALINE PHOSPHATASE 82 U/L (45-117)
--- NOTE | 2017-04-23 06:49 | MB ---
cc: NOLAN CASTRO M.D. DATE OF CONSULTATION 04/23/2017 REASON FOR CONSULTATION I have reviewed hospital records and have spoken with the patient. He is a 56-year-old white male I am seeing for supraventricular tachycardia. HISTORY OF PRESENT ILLNESS The patient's cardiac history includes by his history a catheterization nine years ago which was "completely clean". He may have had a blood clot in his lung but it is unclear whether he was even treated for this and what it was. This was in [place]. The patient states he was hospitalized for a hand wound earlier this year and had a rapid heart rhythm which was treated. He has been asymptomatic until the night before he came in when he developed the rapid onset of rapid palpitations without any other cardiac symptoms. EKG showed narrow complex supraventricular tachycardia at 180 beats per minute which converted with 6 mg of intravenous adenosine. He has had no recurrence. Telemetry has shown sinus rhythm with episodes of sinus tachycardia but no recurrent SVT. The patient is moderately active and has no cardiac symptoms whatsoever otherwise. The patient also notes that he may been bitten by a spider earlier this year and has had a chronic draining wound. This was initially treated with antibiotics. He was seen by Dr. Quevedo who felt there could be a malignancy or pyoderma gangrenosum. PAST MEDICAL HISTORY Otherwise - 1. Chronic pain treated in [place]. 2. History of IV and other drug abuse, although he states he is clean now. 3. Rheumatoid arthritis, although this is unclear. 4. Osteoarthritis with multiple different joint and bone repairs. ALLERGIES None. SOCIAL HISTORY He is a and does not smoke or drink and states he does not use drugs now. FAMILY HISTORY May be significant for father with some type of heart disease in his 40s. MEDICATION LIST Reviewed. REVIEW OF SYSTEMS Remarkable for chronic diffuse pain, the above complaints and poor sleep habits. CARDIOLOGY STUDIES Initial EKG showed narrow complex supraventricular tachycardia. Subsequent EKGs have shown sinus rhythm and are normal. Chest x-ray showed atelectasis. LABORATORY FINDINGS He is anemic with last hematocrit 33.3 and a low white count of 3.2. PT/PTT normal. Potassium on admission 4.6 and 3.7 now. Creatinine 0.94. Troponin is negative. Albumin low at 3.1. Liver functions normal. Blood cultures negative so far. PHYSICAL EXAMINATION GENERAL: On exam he is alert and oriented x 3. Afebrile. Vital signs stable. HEENT: No xanthelasma and oropharyngeal mucosa normal. CHEST: Without deformities and clear. CARDIOVASCULAR: JVD normal. S1, S2. No murmurs or gallops. ABDOMEN: Benign. EXTREMITIES: No cyanosis, clubbing or edema. Pulses 2/2 throughout without bruits with 1+ pedal pulses. He is not ambulated. PROBLEMS 1. Narrow complex supraventricular tachycardia. 1. Hand wound. 2. Substance abuse with chronic pain. 3. Noncompliance. RECOMMENDATIONS 1. The patient has had very rare episodes of this SVT. Given his overall medical situation with poor compliance and lack of recurrence in the hospital, I would not pursue any further treatment at the present time. I have told him that if he does have this again he should come into the emergency room and they can convert him with intravenous adenosine again. At that point more permanent solution with ablation can be pursued. 2. I have taken the liberty of ordering an echocardiogram to make sure is ventricular and valvular function are normal. I will leave this to the primary service to follow up. 3. Substance abstinence. 4. Hand wound per primary service. 5. I will not follow but be available this hospital stay only if needed. All questions were answered. MD JOHN SaucedoG/SSB /5:45 AM /6:29 AM [facility]
[2017-04-23 07:07] LABS: SCAN/DIFF AUTO DIFF CONFIRMED
[2017-04-23 08:00] VITALS: BP 151/59; PULSE 68; RESP 20; TEMP 96.4; O2SAT 98
[2017-04-23] MEDS: ONDANSETRON HCL 4 MG/2 ML VIAL IVP PRN (08:32)
[2017-04-23] MEDS: ENOXAPARIN SODIUM 40 MG/0.4 ML SYRINGE SQ SCH (08:36)
[2017-04-23] MEDS: PANTOPRAZOLE SOD 40 MG DELAYED RELEASE TAB PO SCH (08:37)
[2017-04-23] MEDS: MORPHINE SULFATE 15 MG CONTROLLED RELEASE TAB PO SCH ×2 (08:38→20:13)
[2017-04-23] MEDS: SODIUM CHLORIDE 0.9% FLUSH 10 ML FLUSH IV FLUSH SCH ×2 (08:39→20:13)
[2017-04-23] MEDS: POVIDONE IODINE 10% OINT 30 GM TUBE TOPICAL SCH ×2 (08:40→21:00)
--- NOTE | 2017-04-23 09:12 | PD.WCN.NOT ---
Wound Consult Additional Information: Late entry from 04/22 1500: Patient not seen by wound care for wound to R hand. Patient is being seen by plastics Doctor Sae for wound on R hand .Please follow his recommendations and orders. Karma Gray [facility] Apr 23, 2017 09:12
[2017-04-23 12:00] VITALS: BP 135/80; PULSE 65; RESP 20; TEMP 97; O2SAT 97
--- NOTE | 2017-04-23 12:23 | HHI.PR ---
Subjective Remarks denies fevers/chills states wound seems to be better pain controlled Objective Vitals Vital Signs Date Time Temp Pulse Resp B/P Pulse Ox O2 Delivery O2 Flow Rate FiO2 04/23/17 08:00 96.4 68 20 151/59 98 04/23/17 04:00 97.5 93 20 136/80 99 04/23/17 00:00 96.8 71 18 136/81 97 04/22/17 20:00 97.9 80 18 145/87 97 04/22/17 19:21 18 04/22/17 18:49 96.9 85 14 148/95 98 04/22/17 14:20 96.5 94 16 117/82 97 I/O 04/22/17 04/22/17 04/22/17 04/23/17 04/23/17 04/23/17 07:00 15:00 23:00 07:00 15:00 23:00 Intake Total 242 ml 1200 ml Output Total 1250 ml 300 ml Balance -1008 ml 1200 ml -300 ml Intake Oral 242 ml 1200 ml Output Urine Total 1250 ml 300 ml # Voids 4 # Bowel Movements 1 Result Diagram: 04/23/17 0610 04/23/17 0610 Imaging Last Impressions Hand MRI 04/21/17 0000 Signed Impressions: Service Date/Time: Friday, April 21, 2017 14:26 - CONCLUSION: 1. Nonspecific edema and soft tissue swelling in the subcutaneous soft tissues along the dorsum of the hand. 2. Tiny superficial 5 mm pocket of fluid just in the skin in the distal fourth metacarpal. 3. No evidence of osteomyelitis. Harvinder Huggins MD Chest X-Ray 04/20/17 0400 Signed Impressions: Service Date/Time: Thursday, April 20, 2017 23:10 - CONCLUSION: 1. Bibasilar subsegmental atelectasis versus scarring greater in the right lower lobe. Demetrius Moreno MD Objective Remarks GENERAL: Well-developed, well-nourished, in no acute distress. alert and orientated HEENT: Head is normocephalic without any lesions or masses noted. Facial features are symmetric. Eyes: Pupils equal round reactive to light. Extraocular muscles are intact. Conjunctivae were clear. Oropharyngeal: Pharynx without any erythema edema. Tongue is midline without deviation. Buccal mucosa is moist without any masses or lesions NECK: Supple without any masses. Trachea midline no deviation. No JVD, no bruits are appreciated CARDIAC: Regular rhythm, regular rate. S1/S2 are heard. No murmurs gallops or rubs. LUNGS: Clear to auscultation bilaterally. No wheeze, rhonchi or rales. No use of accessory muscles on inspiration or expiration. ABDOMEN: Soft, nontender. Nondistended. Bowel sounds heard in all 4 quadrants. No organomegaly or masses. Negative rebound, negative guarding EXTREMITIES: No edema, pulses are equal bilaterally. No cyanosis or clubbing NEUROLOGY: Mood and affect appear appropriate. Cranial nerves II through XII grossly intact. Muscle strength 5/5 in upper and lower extremities bilaterally. Deep tendon reflexes are 2+ in upper and lower extremities bilaterally. RIGHT HAND: Patient has rather impressive wound located on almost complete surface of anterior right hand. It does appear to be in multiple stages of healing, difficult to tell if there is any exudates due to cream that has been applied. Medications and IVs Current Medications Medications (Trade) Dose Ordered Sig/Je Route Start Time Stop Time Status Last Admin Piperacillin Sod/ Tazobactam Sod 50 ml @ 100 mls/hr Q6HR IV 04/21/17 06:00 04/23/17 13:25 (Vancomycin Consult Pharmacy) 0 ml @ 0 mls/hr UNSCH OTHER 04/21/17 00:15 (NS Flush) 2 ml UNSCH PRN IV FLUSH 04/21/17 00:15 (NS Flush) 2 ml BID IV FLUSH 04/21/17 09:00 04/23/17 08:39 (Tylenol) 650 mg Q4H PRN PO 04/21/17 00:15 (Zofran Inj) 4 mg Q6H PRN IVP 04/21/17 00:15 04/23/17 08:32 (Milk Of Magnesia Liq) 30 ml Q12H PRN PO 04/21/17 00:15 (Senokot) 17.2 mg Q12H PRN PO 04/21/17 00:15 Enoxaparin Sodium 40 mg 40 mg Q24H SQ 04/21/17 09:00 04/23/17 08:36 (Vancomycin Inj/ NS 500 ml Inj) 515 ml @ 257.5 mls/ hr Q12H IV 04/21/17 15:00 04/23/17 05:49 (Roxicodone) 20 mg Q6H PRN PO 04/21/17 12:00 04/23/17 11:35 (Oramorph Sr) 15 mg Q12HR PO 04/21/17 12:00 04/23/17 08:38 Povidone Iodine 1 applic 1 applic BID TOPICAL 04/21/17 21:00 04/23/17 08:40 (SoluMEDROL INJ/ D5W 100 ml Inj) 100 ml @ 200 mls/hr Q24H IV 04/21/17 18:00 04/26/17 17:59 04/22/17 18:21 (Protonix) 40 mg DAILY PO 04/22/17 13:45 04/23/17 08:37 A/P Problem List: (1) SVT (supraventricular tachycardia) ICD Code: I47.1 Status: Acute Plan: Patient was successfully chemically cardioverted with adenosine in emergency department Continue telemetry 04/23 appreciate cardiology recommendations - No medication for SVT given patient medication noncompliance. (2) Open wound of right hand ICD Code: S61.401A Status: Acute Plan: This is a chronic wound with patient states that has been present since October of this year Hand specialist has been consulted and evaluated the patient indicating that wound may be secondary to pyoderma gangrenosum, they're recommending initiation of steroid and wound care MRI negat jack for osteomyelitis. Continue wound care. - Blood cultures negative. - Obtain wound culture. - Continue Solumedrol 1 gram daily x 5 days and then taper dose slowly over several weeks. 04/23 Discussed with hand surgery - biopsy planned for tomorrow. (3) Leukopenia ICD Code: D72.819 Status: Acute Plan: Unknown etiology this time Resolvved - WBC normal today continue to monitor CBC (4) Chronic pain ICD Code: G89.29 Status: Chronic Plan: Did review patient's prescription history on E force Resumed patient's home medication to include oxycodone 20 mg every 6 hours as needed, morphine sulfate extended release 15 mg twice daily. - Pain controlled. (5) Steroid-induced hyperglycemia ICD Code: R73.9 Status: Acute Plan: Will place on SSI with insulin Novolog. Monitor accuchecks. Check hemoglobin A1C. Assessment and Plan GI prophylaxis: Will add Protonix since patient on high dose steroids now with some abdominal discomfort. DVt Prophylaxis: Lovenox SQ, SCD's Discharge Planning Continue to monitor in the medical floor. DC pending clinical improvement and hand surgery clearance. Problem Qualifiers (1) Open wound of right hand: (2) Chronic pain: Qualified Code: G89.29 - Other chronic pain Umair Espinosa MD Apr 23, 2017 12:23
[2017-04-23] MEDS ORDERED: PHARMACY ORDERED LAB ONE (14:45)
--- NOTE | 2017-04-23 15:47 | PD.PLAS.PN ---
Subjective Remarks The patient reports that his hand appears to be improving. Vital Signs Date Time Temp Pulse Resp B/P Pulse Ox O2 Delivery O2 Flow Rate FiO2 04/23/17 12:00 97.0 65 20 135/80 97 04/23/17 08:00 96.4 68 20 151/59 98 04/23/17 04:00 97.5 93 20 136/80 99 04/23/17 00:00 96.8 71 18 136/81 97 04/22/17 20:00 97.9 80 18 145/87 97 04/22/17 19:21 18 04/22/17 18:49 96.9 85 14 148/95 98 I/O 04/22/17 04/22/17 04/22/17 04/23/17 04/23/17 04/23/17 07:00 15:00 23:00 07:00 15:00 23:00 Intake Total 242 ml 1200 ml 930 ml Output Total 1250 ml 300 ml Balance -1008 ml 1200 ml -300 ml 930 ml Intake Oral 242 ml 1200 ml 930 ml Output Urine Total 1250 ml 300 ml # Voids 4 4 # Bowel Movements 1 Laboratory Tests Test 04/23/17 06:10 White Blood Count 5.8 Red Blood Count 4.41 Hemoglobin 10.5 Hematocrit 32.8 Mean Corpuscular Volume 74.4 Mean Corpuscular Hemoglobin 23.8 Mean Corpuscular Hemoglobin 32.0 Concent Red Cell Distribution Width 19.8 Platelet Count 314 Mean Platelet Volume 6.6 Neutrophils (%) (Auto) 90.0 Lymphocytes (%) (Auto) 8.6 Monocytes (%) (Auto) 1.3 Eosinophils (%) (Auto) 0.0 Basophils (%) (Auto) 0.1 Neutrophils # (Auto) 5.2 Lymphocytes # (Auto) 0.5 Monocytes # (Auto) 0.1 Eosinophils # (Auto) 0.0 Basophils # (Auto) 0.0 CBC Comment AUTO DIFF Differential Comment AUTO DIFF CONFIRMED Sodium Level 143 Potassium Level 3.5 Chloride Level 108 Carbon Dioxide Level 25.5 Anion Gap 10 Blood Urea Nitrogen 15 Creatinine 0.99 Estimat Glomerular Filtration 78 Rate Random Glucose 230 Calcium Level 8.6 Total Bilirubin 0.2 Aspartate Amino Transf 10 (AST/SGOT) Alanine Aminotransferase 16 (ALT/SGPT) Alkaline Phosphatase 82 Total Protein 7.1 Albumin 2.8 Date/Time Procedure Status Source Growth 04/20/17 00:10 Aerobic Blood Culture - Preliminary Resulted Blood Peripheral NO GROWTH IN 2 DAYS 04/20/17 00:10 Anaerobic Blood Culture - Preliminary Resulted Blood Peripheral NO GROWTH IN 2 DAYS Result Diagram: 04/23/17 0610 04/23/17 0610 Exam Findings The patient continues to have good range of motion. At this point, I don't see significant change in appearance of the right hand wound. Plan Impression: The patient has a wound on the dorsal aspect of his right hand which appears to be either inflammatory or neoplastic. Plan: I have advised the patient that we will take him to the operating room on April 26 for a biopsy. He understands and accepts the risks and complications of the surgery. Nidhi Quevedo MD Apr 23, 2017 15:47
[2017-04-23 16:00] VITALS: BP 158/95; PULSE 59; RESP 20; TEMP 97.3; O2SAT 97
[2017-04-23] MEDS: methylPREDNISolone SO SUCC INJ 1,000 MG in DEXTROSE 5% IN WATER 100ML INJ 100 ML IV SCH ×2 (18:38)
--- NOTE | 2017-04-23 18:58 | ECHRPT ---
Indication: Cardiomyopathy, unspecified CONCLUSIONS The left ventricular systolic function is normal with an estimated ejection fraction in the range of 60-65%. Wall thickness is measured at the upper limits of normal. Left ventricular diastolic function parameters are normal. There is mild tricuspid valve regurgitation. BP: 135 / 80 HR: 65 Rhythm: Sinus MEASUREMENTS (Male / Female) Normal Values Technical Quality:Good 2D ECHO LV Diastolic Diameter PLAX 3.9 cm 4.2 - 5.9 / 3.9 - 5.3 cm LV Systolic Diameter PLAX 2.8 cm IVS Diastolic Thickness 1.0 cm 0.6 - 1.0 / 0.6 - 0.9 cm LVPW Diastolic Thickness 0.9 cm 0.6 - 1.0 / 0.6 - 0.9 cm LV Relative Wall Thickness 0.5 LVOT Diameter 2.3 cm LA Systolic Diameter LX 4.1 cm 3.0 - 4.0 / 2.7 - 3.8 cm M-MODE Aortic Root Diameter MM 3.6 cm AV Cusp Separation MM 2.2 cm DOPPLER AV Peak Velocity 145.0 cm/s AV Peak Gradient 8.4 mmHg LVOT Peak Velocity 106.0 cm/s LVOT Peak Gradient 4.5 mmHg AV Area Cont Eq pk 3.0 cm Mitral E Point Velocity 76.0 cm/s Mitral A Point Velocity 52.8 cm/s Mitral E to A Ratio 1.4 LV E' Lateral Velocity 13.5 cm/s Mitral E to LV E' Lateral Ratio 5.6 LV E' Septal Velocity 10.4 cm/s Mitral E to LV E' Septal Ratio 7.3 TR Peak Velocity 228.0 cm/s TR Peak Gradient 20.8 mmHg FINDINGS LEFT VENTRICLE The left ventricular systolic function is normal with an estimated ejection fraction in the range of 60-65%. Left ventricular diastolic function parameters are normal. Normal left ventricular size. Wall thickness is measured at the upper limits of normal. RIGHT VENTRICLE Normal right ventricular size and systolic function. LEFT ATRIUM The left atrial size is normal. RIGHT ATRIUM The right atrial size is normal. ATRIAL SEPTUM The interatrial septum not well visualized. AORTA The aortic root and proximal ascending aorta are not well visualized. MITRAL VALVE Structurally normal mitral valve. No mitral valve regurgitation. No mitral valve stenosis. AORTIC VALVE Trileaflet aortic valve. No aortic valve stenosis or regurgitation. TRICUSPID VALVE There is mild tricuspid valve regurgitation. The estimated pulmonary arterial pressure is 31 mmHg. PULMONARY VALVE The pulmonary valve is not well visualized. VESSELS The inferior vena cava is normal in size. PERICARDIUM No pericardial effusion. Pradip Plunkett DO (Electronically Signed) Final Date:23 April 2017 18:58
[2017-04-23 21:25] VITALS: BP 142/93; PULSE 57; RESP 16; TEMP 97.5; O2SAT 97
[2017-04-24 01:14] VITALS: BP 170/102; PULSE 58; RESP 20; TEMP 97.8; O2SAT 98
[2017-04-24] MEDS: VANCOMYCIN 1,500 MG/NS 500 ML IV SCH ×4 (02:25→15:21)
[2017-04-24 05:55] VITALS: BP 158/96; PULSE 96; RESP 20; TEMP 98; O2SAT 96
[2017-04-24 07:37] LABS: HEMATOCRIT 31.3 % (39.0-51.0); MEAN CELL VOLUME 75.8 FL (80.0-100.0); MEAN CORPUSCULAR HEMOGLOBIN 24.4 PG (27.0-34.0); MEAN CORPUSCULAR HGB CONC 32.2 % (32.0-36.0); PLATELET COUNT 278 TH/MM3 (150-450); RED BLOOD COUNT 4.12 MIL/MM3 (4.50-5.90); RED CELL DISTRIBUTION WIDTH 20.1 % (11.6-17.2); WHITE BLOOD COUNT 4.7 TH/MM3 (4.0-11.0)
[2017-04-24 07:47] LABS: POTASSIUM 3.6 MEQ/L (3.5-5.1); REVIEW FLAG FINAL
[2017-04-24 07:50] LABS: BICARBONATE 28.4 MEQ/L (21.0-32.0)
[2017-04-24 08:40] VITALS: BP 149/83; PULSE 65; RESP 18; TEMP 96.1; O2SAT 96
[2017-04-24] MEDS: PIPERACIL-TAZO 3.375 GM PREMIX 50 ML IV SCH ×5 (09:02→23:57)
[2017-04-24] MEDS: MORPHINE SULFATE 15 MG CONTROLLED RELEASE TAB PO SCH ×2 (09:02→21:00)
[2017-04-24] MEDS: SODIUM CHLORIDE 0.9% FLUSH 10 ML FLUSH IV FLUSH SCH ×2 (09:02→21:01)
[2017-04-24] MEDS: PANTOPRAZOLE SOD 40 MG DELAYED RELEASE TAB PO SCH (09:04)
[2017-04-24] MEDS: ENOXAPARIN SODIUM 40 MG/0.4 ML SYRINGE SQ SCH (09:07)
[2017-04-24] MEDS: POVIDONE IODINE 10% OINT 30 GM TUBE TOPICAL SCH ×2 (09:08→21:01)
[2017-04-24] MEDS ORDERED: ALUMINUM/MAGNESIUM/SIMETH 30 ML CUP PO ONE (12:15)
[2017-04-24 13:06] VITALS: BP 156/79; PULSE 60; RESP 14; TEMP 97.6; O2SAT 99
--- NOTE | 2017-04-24 13:54 | HHI.PR ---
Subjective Remarks patient states wound is improving c/o hurtburn Objective Vitals Vital Signs Date Time Temp Pulse Resp B/P Pulse Ox O2 Delivery O2 Flow Rate FiO2 04/24/17 13:06 97.6 60 14 156/79 99 04/24/17 08:40 96.1 65 18 149/83 96 04/24/17 05:55 98.0 96 20 158/96 96 04/24/17 01:14 97.8 58 20 170/102 98 04/23/17 21:25 97.5 57 16 142/93 97 04/23/17 16:00 97.3 59 20 158/95 97 I/O 04/23/17 04/23/17 04/23/17 04/24/17 04/24/17 04/24/17 07:00 15:00 23:00 07:00 15:00 23:00 Intake Total 930 ml 2073 ml Output Total 300 ml 650 ml Balance -300 ml 930 ml 2073 ml -650 ml Intake Oral 930 ml IV Total 2073 ml Output Urine Total 300 ml 650 ml # Voids 4 Result Diagram: 04/24/17 0730 04/24/17 0730 Imaging Last Impressions Hand MRI 04/21/17 0000 Signed Impressions: Service Date/Time: Friday, April 21, 2017 14:26 - CONCLUSION: 1. Nonspecific edema and soft tissue swelling in the subcutaneous soft tissues along the dorsum of the hand. 2. Tiny superficial 5 mm pocket of fluid just in the skin in the distal fourth metacarpal. 3. No evidence of osteomyelitis. Harvinder Huggins MD Chest X-Ray 04/20/17 2250 Signed Impressions: Service Date/Time: Thursday, April 20, 2017 23:10 - CONCLUSION: 1. Bibasilar subsegmental atelectasis versus scarring greater in the right lower lobe. Demetrius Moreno MD Objective Remarks GENERAL: Well-developed, well-nourished, in no acute distress. alert and orientated HEENT: Head is normocephalic without any lesions or masses noted. Facial features are symmetric. Eyes: Pupils equal round reactive to light. Extraocular muscles are intact. Conjunctivae were clear. Oropharyngeal: Pharynx without any erythema edema. Tongue is midline without deviation. Buccal mucosa is moist without any masses or lesions NECK: Supple without any masses. Trachea midline no deviation. No JVD, no bruits are appreciated CARDIAC: Regular rhythm, regular rate. S1/S2 are heard. No murmurs gallops or rubs. LUNGS: Clear to auscultation bilaterally. No wheeze, rhonchi or rales. No use of accessory muscles on inspiration or expiration. ABDOMEN: Soft, nontender. Nondistended. Bowel sounds heard in all 4 quadrants. No organomegaly or masses. Negative rebound, negative guarding EXTREMITIES: No edema, pulses are equal bilaterally. No cyanosis or clubbing NEUROLOGY: Mood and affect appear appropriate. Cranial nerves II through XII grossly intact. Muscle strength 5/5 in upper and lower extremities bilaterally. Deep tendon reflexes are 2+ in upper and lower extremities bilaterally. RIGHT HAND: Patient has rather impressive wound located on almost complete surface of anterior right hand. It does appear to be in multiple stages of healing, difficult to tell if there is any exudates due to cream that has been applied. Medications and IVs Current Medications Medications (Trade) Dose Ordered Sig/Je Route Start Time Stop Time Status Last Admin Piperacillin Sod/ Tazobactam Sod 50 ml @ 100 mls/hr Q6HR IV 04/21/17 06:00 04/24/17 13:34 (Vancomycin Consult Pharmacy) 0 ml @ 0 mls/hr UNSCH OTHER 04/21/17 00:15 (NS Flush) 2 ml UNSCH PRN IV FLUSH 04/21/17 00:15 (NS Flush) 2 ml BID IV FLUSH 04/21/17 09:00 04/24/17 09:02 (Tylenol) 650 mg Q4H PRN PO 04/21/17 00:15 (Zofran Inj) 4 mg Q6H PRN IVP 04/21/17 00:15 04/23/17 08:32 (Milk Of Magnesia Liq) 30 ml Q12H PRN PO 04/21/17 00:15 (Senokot) 17.2 mg Q12H PRN PO 04/21/17 00:15 Enoxaparin Sodium 40 mg 40 mg Q24H SQ 04/21/17 09:00 04/24/17 09:07 (Vancomycin Inj/ NS 500 ml Inj) 515 ml @ 257.5 mls/ hr Q12H IV 04/21/17 15:00 04/24/17 02:25 (Roxicodone) 20 mg Q6H PRN PO 04/21/17 12:00 04/24/17 09:01 (Oramorph Sr) 15 mg Q12HR PO 04/21/17 12:00 04/24/17 09:02 Povidone Iodine 1 applic 1 applic BID TOPICAL 04/21/17 21:00 04/24/17 09:08 (SoluMEDROL INJ/ D5W 100 ml Inj) 100 ml @ 200 mls/hr Q24H IV 04/21/17 18:00 04/26/17 17:59 04/23/17 18:38 (Protonix) 40 mg DAILY PO 04/22/17 13:45 04/24/17 09:04 (Mag-Al Plus Susp Liq) 30 ml Q6HR PRN PO 04/24/17 18:00 Urinary Catheter: No Vascular Central Line Catheter: No A/P Problem List: (1) SVT (supraventricular tachycardia) ICD Code: I47.1 Status: Acute Plan: Patient was successfully chemically cardioverted with adenosine in emergency department Continue telemetry 04/23 appreciate cardiology recommendations - No medication for SVT given patient medication noncompliance. (2) Open wound of right hand ICD Code: S61.401A Status: Acute Plan: This is a chronic wound with patient states that has been present since October of this year Hand specialist has been consulted and evaluated the patient indicating that wound may be secondary to pyoderma gangrenosum, they're recommending initiation of steroid and wound care MRI negat jack for osteomyelitis. Continue wound care. - Blood cultures negative. - Obtain wound culture. - Continue Solumedrol 1 gram daily x 5 days and then taper dose slowly over several weeks. 04/23 Discussed with hand surgery - biopsy planned for wednesday (3) Leukopenia ICD Code: D72.819 Status: Acute Plan: Unknown etiology this time Resolved - WBC normal today continue to monitor CBC (4) Chronic pain ICD Code: G89.29 Status: Chronic Plan: Did review patient's prescription history on E force Resumed patient's home medication to include oxycodone 20 mg every 6 hours as needed, morphine sulfate extended release 15 mg twice daily. - Pain controlled. (5) Steroid-induced hyperglycemia ICD Code: R73.9 Status: Acute Plan: Will place on SSI with insulin Novolog. Monitor accuchecks. Check hemoglobin A1C. Assessment and Plan GI prophylaxis: Will add Protonix since patient on high dose steroids now with some abdominal discomfort. DVt Prophylaxis: Lovenox SQ, SCD's Discharge Planning Continue to monitor in the medical floor. DC pending clinical improvement and hand surgery clearance. Problem Qualifiers (1) Open wound of right hand: (2) Chronic pain: Qualified Code: G89.29 - Other chronic pain Umair Espinosa MD Apr 24, 2017 13:54
[2017-04-24] MEDS: methylPREDNISolone SO SUCC INJ 1,000 MG in DEXTROSE 5% IN WATER 100ML INJ 100 ML IV SCH ×2 (17:39)
[2017-04-24 17:59] VITALS: BP 167/95; PULSE 59; RESP 16; TEMP 96.9; O2SAT 98
[2017-04-24 20:18] VITALS: BP 182/100; PULSE 55; RESP 16; TEMP 97.2; O2SAT 96
[2017-04-25] VITALS (7 sets, daily range): BP systolic 146–188; BP diastolic 73–92; PULSE 45–65; RESP 14–20; TEMP 96.3–98; O2SAT 95–98
[2017-04-25] MEDS: VANCOMYCIN 1,500 MG/NS 500 ML IV SCH ×2 (02:40)
[2017-04-25] MEDS: ALUMINUM/MAGNESIUM/SIMETH 30 ML CUP PO PRN ×2 (04:37→10:27)
[2017-04-25] MEDS: PIPERACIL-TAZO 3.375 GM PREMIX 50 ML IV SCH ×4 (06:11→23:23)
[2017-04-25 10:27] LABS: HEMOGLOBIN A1a 1.8 %; HEMOGLOBIN A1b 1.5 %; HEMOGLOBIN Ao 85.3 %; HEMOGLOBIN LA1C 1.8 %; HEMOGLOBIN P3 3.8 %
[2017-04-25] MEDS: ENOXAPARIN SODIUM 40 MG/0.4 ML SYRINGE SQ SCH (10:27)
[2017-04-25] MEDS: PANTOPRAZOLE SOD 40 MG DELAYED RELEASE TAB PO SCH (10:28)
[2017-04-25] MEDS: MORPHINE SULFATE 15 MG CONTROLLED RELEASE TAB PO SCH ×2 (10:28→20:46)
[2017-04-25] MEDS: POVIDONE IODINE 10% OINT 30 GM TUBE TOPICAL SCH ×2 (10:32→20:46)
--- NOTE | 2017-04-25 11:02 | HHI.PR ---
Subjective Remarks still c/o heartburn and nausea denies cp/sob afebrile bp better Objective Vitals Vital Signs Date Time Temp Pulse Resp B/P Pulse Ox O2 Delivery O2 Flow Rate FiO2 04/25/17 09:30 96.3 65 14 151/73 96 04/25/17 05:58 18 04/25/17 04:50 98.0 47 18 146/91 97 04/25/17 00:04 97.9 50 16 152/83 95 04/24/17 22:02 16 04/24/17 20:18 97.2 55 16 182/100 96 04/24/17 17:59 96.9 59 16 167/95 98 04/24/17 13:06 97.6 60 14 156/79 99 I/O 04/24/17 04/24/17 04/24/17 04/25/17 04/25/17 04/25/17 07:00 15:00 23:00 07:00 15:00 23:00 Intake Total 1000 ml 765 ml Output Total 650 ml 350 ml Balance -650 ml 650 ml 765 ml Intake Oral 1000 ml IV Total 765 ml Output Urine Total 650 ml 350 ml # Voids 4 # Bowel Movements 2 Result Diagram: 04/24/17 0730 04/24/17 0730 Imaging Last Impressions Hand MRI 04/21/17 0000 Signed Impressions: Service Date/Time: Friday, April 21, 2017 14:26 - CONCLUSION: 1. Nonspecific edema and soft tissue swelling in the subcutaneous soft tissues along the dorsum of the hand. 2. Tiny superficial 5 mm pocket of fluid just in the skin in the distal fourth metacarpal. 3. No evidence of osteomyelitis. Harvinder Huggins MD Chest X-Ray 04/20/17 6730 Signed Impressions: Service Date/Time: Thursday, April 20, 2017 23:10 - CONCLUSION: 1. Bibasilar subsegmental atelectasis versus scarring greater in the right lower lobe. Demetrius Moreno MD Objective Remarks GENERAL: Well-developed, well-nourished, in no acute distress. alert and orientated HEENT: Head is normocephalic without any lesions or masses noted. Facial features are symmetric. Eyes: Pupils equal round reactive to light. Extraocular muscles are intact. Conjunctivae were clear. Oropharyngeal: Pharynx without any erythema edema. Tongue is midline without deviation. Buccal mucosa is moist without any masses or lesions NECK: Supple without any masses. Trachea midline no deviation. No JVD, no bruits are appreciated CARDIAC: Regular rhythm, regular rate. S1/S2 are heard. No murmurs gallops or rubs. LUNGS: Clear to auscultation bilaterally. No wheeze, rhonchi or rales. No use of accessory muscles on inspiration or expiration. ABDOMEN: Soft, nontender. Nondistended. Bowel sounds heard in all 4 quadrants. No organomegaly or masses. Negative rebound, negative guarding EXTREMITIES: No edema, pulses are equal bilaterally. No cyanosis or clubbing NEUROLOGY: Mood and affect appear appropriate. Cranial nerves II through XII grossly intact. Muscle strength 5/5 in upper and lower extremities bilaterally. Deep tendon reflexes are 2+ in upper and lower extremities bilaterally. RIGHT HAND: There is a dry ulcer on the dorsal surface of the right hand. Procedures None Medications and IVs Current Medications Medications (Trade) Dose Ordered Sig/Je Route Start Time Stop Time Status Last Admin Piperacillin Sod/ Tazobactam Sod 50 ml @ 100 mls/hr Q6HR IV 04/21/17 06:00 04/25/17 06:11 (Vancomycin Consult Pharmacy) 0 ml @ 0 mls/hr UNSCH OTHER 04/21/17 00:15 (NS Flush) 2 ml UNSCH PRN IV FLUSH 04/21/17 00:15 (NS Flush) 2 ml BID IV FLUSH 04/21/17 09:00 04/24/17 21:01 (Tylenol) 650 mg Q4H PRN PO 04/21/17 00:15 (Zofran Inj) 4 mg Q6H PRN IVP 04/21/17 00:15 04/23/17 08:32 (Milk Of Magnesia Liq) 30 ml Q12H PRN PO 04/21/17 00:15 (Senokot) 17.2 mg Q12H PRN PO 04/21/17 00:15 Enoxaparin Sodium 40 mg 40 mg Q24H SQ 04/21/17 09:00 04/25/17 10:27 (Vancomycin Inj/ NS 500 ml Inj) 515 ml @ 257.5 mls/ hr Q12H IV 04/21/17 15:00 04/25/17 02:40 (Roxicodone) 20 mg Q6H PRN PO 04/21/17 12:00 04/25/17 10:29 (Oramorph Sr) 15 mg Q12HR PO 04/21/17 12:00 04/25/17 10:28 Povidone Iodine 1 applic 1 applic BID TOPICAL 04/21/17 21:00 04/25/17 10:32 (SoluMEDROL INJ/ D5W 100 ml Inj) 100 ml @ 200 mls/hr Q24H IV 04/21/17 18:00 04/26/17 17:59 04/24/17 17:39 (Protonix) 40 mg DAILY PO 04/22/17 13:45 04/25/17 10:28 (Mag-Al Plus Susp Liq) 30 ml Q6HR PRN PO 04/24/17 18:00 04/25/17 10:27 Miscellaneous Information SPECIFIC LAB TO BE DRAWN:VANCOMY... ONCE ONCE .XX 04/27/17 14:45 04/27/17 14:46 Urinary Catheter: No Vascular Central Line Catheter: No A/P Problem List: (1) SVT (supraventricular tachycardia) ICD Code: I47.1 Status: Resolved Plan: Patient was successfully chemically cardioverted with adenosine in emergency department. The patient was admitted and monitored on telemetry during hospital stay. Did not have any repeat SVT episodes. Etiology was consulted. Recommended no medication for SVT given prior history of repeated medication noncompliance. (2) Open wound of right hand ICD Code: S61.401A Status: Acute Plan: This is a chronic wound with patient states that has been present since October of this year Hand specialist has been consulted and evaluated the patient indicating that wound may be secondary to pyoderma gangrenosum, recommended high-dose posterior treatment and wound care. MRI negat jack for osteomyelitis. Continue wound care. - Blood cultures negative. 04/25 Wound cultures obtained and no organisms was seen on Gram stain. Continue Solumedrol 1 gram daily x 5 days and then taper dose slowly over several weeks. Discussed with hand surgery - biopsy planned for Thursday 04/26. Discontinue IV vancomycin. (3) Leukopenia ICD Code: D72.819 Status: Acute Plan: Unknown etiology this time Resolved - WBC normal today continue to monitor CBC (4) Chronic pain ICD Code: G89.29 Status: Chronic Plan: Did review patient's prescription history on E force Resumed patient's home medication to include oxycodone 20 mg every 6 hours as needed, morphine sulfate extended release 15 mg twice daily. - Pain controlled. (5) Steroid-induced hyperglycemia ICD Code: R73.9 Status: Acute Plan: Will place on SSI with insulin Novolog. Monitor accuchecks. Hemoccult A1c pending. Blood sugars controlled. Assessment and Plan GI prophylaxis: Will add Protonix since patient on high dose steroids now with some abdominal discomfort. DVt Prophylaxis: Lovenox SQ, SCD's Discharge Planning Continue to monitor in the medical floor. DC pending clinical improvement and hand surgery clearance. Problem Qualifiers (1) Open wound of right hand: (2) Chronic pain: Qualified Code: G89.29 - Other chronic pain Umair Espinosa MD Apr 25, 2017 11:02
[2017-04-25] MEDS: methylPREDNISolone SO SUCC INJ 1,000 MG in DEXTROSE 5% IN WATER 100ML INJ 100 ML IV SCH ×2 (18:37)
[2017-04-25] MEDS: SODIUM CHLORIDE 0.9% FLUSH 10 ML FLUSH IV FLUSH SCH (20:47)
[2017-04-26] VITALS (8 sets, daily range): BP systolic 148–179; BP diastolic 77–98; PULSE 46–60; RESP 16–20; TEMP 95.6–98.7; O2SAT 78–98
[2017-04-26] MEDS ORDERED: POVIDONE IODINE 5% (ANTISEPSIS KIT) 4 APPLICATIONS EACH NARE PRN (02:15)
[2017-04-26] MEDS ORDERED: LACTATED RINGER'S 1000 ML IV PRN (02:15)
[2017-04-26] MEDS ORDERED: INSULIN HUMAN REGULAR 1,000 UNITS/10 ML VIAL SQ PRN (02:15)
[2017-04-26] MEDS ORDERED: SODIUM CHLORID 0.9% 500 ML IV PRN (02:15)
[2017-04-26] MEDS ORDERED: CHLORHEXIDINE GLUCONATE 2 % 1 PACK (2 CLOTHS) TOPICAL PRN (02:15)
[2017-04-26] MEDS: PIPERACIL-TAZO 3.375 GM PREMIX 50 ML IV SCH ×3 (05:38→19:02)
[2017-04-26 05:52] LABS: POTASSIUM 3.6 MEQ/L (3.5-5.1)
[2017-04-26 05:57] LABS: BICARBONATE 26.9 MEQ/L (21.0-32.0)
[2017-04-26] MEDS: PANTOPRAZOLE SOD 40 MG DELAYED RELEASE TAB PO SCH (08:10)
[2017-04-26] MEDS: ENOXAPARIN SODIUM 40 MG/0.4 ML SYRINGE SQ SCH (08:10)
[2017-04-26] MEDS: MORPHINE SULFATE 15 MG CONTROLLED RELEASE TAB PO SCH ×2 (08:10→20:23)
[2017-04-26] MEDS: POVIDONE IODINE 10% OINT 30 GM TUBE TOPICAL SCH (08:11)
[2017-04-26] MEDS: SODIUM CHLORIDE 0.9% FLUSH 10 ML FLUSH IV FLUSH SCH ×2 (08:12→20:24)
[2017-04-26] MEDS ORDERED: MIDAZOLAM HCL 2 MG/2 ML VIAL IV ONE (09:42)
[2017-04-26] MEDS ORDERED: PROPOFOL 200 MG/20 ML AMP IV ONE (09:42)
[2017-04-26] MEDS ORDERED: BUPIVACAINE HCL PF 0.5% 30 ML VIAL ONE (10:37)
[2017-04-26] MEDS ORDERED: LIDOCAINE HCL 2% 50 ML VIAL ONE (10:41)
[2017-04-26] MEDS ORDERED: BUPIVACAINE/EPINEPHRINE 0.5% PF 30 ML VIAL ONE (10:56)
[2017-04-26] MEDS ORDERED: POVIDONE IODINE 10% OINT 1 PACKET TOPICAL ONE (11:04)
[2017-04-26] MEDS ORDERED: amLODIPine BESYLATE 5 MG TAB PO SCH (11:30)
--- NOTE | 2017-04-26 11:52 | HHI.PR ---
Immediate Post Op Note Procedure Date: Apr 26, 2017 Pre Op Diagnosis: (1) Open wound of right hand Post Op Diagnosis: (1) Open wound of right hand Surgeon: Nidhi Quevedo Director Agricultural Services(s): None. Procedure: Incisional biopsy of lesion of right hand. Anesthesia: MAC Drains: None Tourniquet time (min at mmHg) NA Patient to: SDS Patient Condition: Good Date/Time of Procedure: SEE SURGICAL CARE RECORD Nidhi Quevedo MD Apr 26, 2017 11:52
--- NOTE | 2017-04-26 12:16 | MP ---
cc: MARTHA TEJEDA M.D. DATE OF SURGERY: 04/26/2017 PREOPERATIVE DIAGNOSIS Open wound of right hand, chronic. POSTOPERATIVE DIAGNOSIS Open wound of right hand, chronic. PROCEDURE Incisional biopsy of three sites of the open wound of the right hand. ANESTHESIA Local with MAC. SURGEON Martha Tejeda MD INDICATIONS 56-year-old male with a wound of his right hand for approximately 7 months. FINDINGS The wound was biopsied in three separate sites. Operative time was approximately 30 minutes. PROCEDURE The patient was seen preoperatively where the site and side were identified and marked. The patient was then taken to the operating room, placed in supine position. His identity was checked against the arm band and the consent form. Site and side confirmed, time-out called prior to beginning the procedure. The right upper extremity was prepped with Hibiclens and draped in the usual sterile fashion. The areas to be incised were outlined with a marking pen along the edge of the lesion in three separate places. Care was taken to get normal as well as involved tissue. This was done at the dorsoradial aspect, the dorsal distal and the dorsal proximal. These areas were outlined with a marking pen and infiltrated with bupivacaine 0.5% with epinephrine. Once anesthetic had taken effect, a #15 blade was used to make an incision proximally down through the skin, down into the deeper tissue and the ellipse which measured approximately 1 cm x 0.5 cm in greatest dimension was sent off as pathologic specimen labeled dorsal proximal area. The distal one was then incised in the same fashion and the biopsy was approximately the same size and then an additional one was done on the radial side. Again the biopsy was approximately the same size. Each of these areas were then undermined to the scar tissue. This was done sharply and the wounds were closed with interrupted 4-0 Nylon suture material. The hand was then cleansed of Hibiclens and blood and dressed with povidone-iodine ointment, Telfa, 4x4s and hand wrap. The patient was then taken from the operating room to the secondary [facility] in satisfactory condition having tolerated the procedure well. Martha Tejeda MD Katia/ARLETTE /11:59 AM /12:10 PM
--- NOTE | 2017-04-26 15:25 | HHI.PR ---
Subjective Remarks Bp elevated denies fevers/chills sp biopsy heartburn improving Objective Vitals Vital Signs Date Time Temp Pulse Resp B/P Pulse Ox O2 Delivery O2 Flow Rate FiO2 04/26/17 12:48 98.7 60 19 169/93 98 04/26/17 11:55 43 14 160/93 99 Room Air 04/26/17 11:42 97.7 42 14 151/83 98 Room Air 04/26/17 10:02 97.8 50 16 179/98 94 04/26/17 08:10 95.6 60 19 148/77 78 04/26/17 04:00 96.0 46 20 152/91 98 04/26/17 00:00 96.8 53 20 161/96 98 04/25/17 20:07 47 04/25/17 20:00 96.6 48 20 161/88 97 04/25/17 17:56 96.5 45 16 157/85 98 I/O 04/25/17 04/25/17 04/25/17 04/26/17 04/26/17 04/26/17 07:00 15:00 23:00 07:00 15:00 23:00 Intake Total 765 ml 300 ml 240 ml 120 ml 440 ml Balance 765 ml 300 ml 240 ml 120 ml 440 ml Intake Oral 240 ml 120 ml 240 ml IV Total 765 ml 300 ml Other 200 ml # Voids 2 2 0 # Bowel Movements 1 0 Result Diagram: 04/24/17 0730 04/26/17 0515 Imaging Last Impressions Hand MRI 04/21/17 0000 Signed Impressions: Service Date/Time: Friday, April 21, 2017 14:26 - CONCLUSION: 1. Nonspecific edema and soft tissue swelling in the subcutaneous soft tissues along the dorsum of the hand. 2. Tiny superficial 5 mm pocket of fluid just in the skin in the distal fourth metacarpal. 3. No evidence of osteomyelitis. Harvinder Huggins MD Chest X-Ray 04/20/17 9240 Signed Impressions: Service Date/Time: Thursday, April 20, 2017 23:10 - CONCLUSION: 1. Bibasilar subsegmental atelectasis versus scarring greater in the right lower lobe. Demetrius Moreno MD Objective Remarks GENERAL: Well-developed, well-nourished, in no acute distress. alert and orientated HEENT: Head is normocephalic without any lesions or masses noted. Facial features are symmetric. Eyes: Pupils equal round reactive to light. Extraocular muscles are intact. Conjunctivae were clear. Oropharyngeal: Pharynx without any erythema edema. Tongue is midline without deviation. Buccal mucosa is moist without any masses or lesions NECK: Supple without any masses. Trachea midline no deviation. No JVD, no bruits are appreciated CARDIAC: Regular rhythm, regular rate. S1/S2 are heard. No murmurs gallops or rubs. LUNGS: Clear to auscultation bilaterally. No wheeze, rhonchi or rales. No use of accessory muscles on inspiration or expiration. ABDOMEN: Soft, nontender. Nondistended. Bowel sounds heard in all 4 quadrants. No organomegaly or masses. Negative rebound, negative guarding EXTREMITIES: No edema, pulses are equal bilaterally. No cyanosis or clubbing NEUROLOGY: Mood and affect appear appropriate. Cranial nerves II through XII grossly intact. Muscle strength 5/5 in upper and lower extremities bilaterally. Deep tendon reflexes are 2+ in upper and lower extremities bilaterally. RIGHT HAND: There is a dry ulcer on the dorsal surface of the right hand. Procedures None Medications and IVs Current Medications Medications (Trade) Dose Ordered Sig/Je Route Start Time Stop Time Status Last Admin (Zosyn 3.375 Gm Premix) 50 ml @ 100 mls/hr Q6HR IV 04/21/17 06:00 04/26/17 12:11 (NS Flush) 2 ml UNSCH PRN IV FLUSH 04/21/17 00:15 (NS Flush) 2 ml BID IV FLUSH 04/21/17 09:00 04/26/17 08:12 (Tylenol) 650 mg Q4H PRN PO 04/21/17 00:15 (Zofran Inj) 4 mg Q6H PRN IVP 04/21/17 00:15 04/23/17 08:32 (Milk Of Magnesia Liq) 30 ml Q12H PRN PO 04/21/17 00:15 (Senokot) 17.2 mg Q12H PRN PO 04/21/17 00:15 (Lovenox Inj) 40 mg Q24H SQ 04/21/17 09:00 04/25/17 10:27 (Roxicodone) 20 mg Q6H PRN PO 04/21/17 12:00 04/26/17 14:49 Morphine Sulfate 15 mg 15 mg Q12HR PO 04/21/17 12:00 04/26/17 08:10 (SoluMEDROL INJ/ D5W 100 ml Inj) 100 ml @ 200 mls/hr Q24H IV 04/21/17 18:00 04/26/17 17:59 04/25/17 18:37 (Protonix) 40 mg DAILY PO 04/22/17 13:45 04/26/17 08:10 Al Hydrox/Mg Hydrox/ Simethicone 30 ml 30 ml Q6HR PRN PO 04/24/17 18:00 04/25/17 10:27 Lactated Ringer's 1,000 ml @ 30 mls/hr Q24H PRN IV 04/26/17 02:15 04/29/17 02:14 04/26/17 10:05 (NS 500 ml Inj) 500 ml @ 30 mls/hr [id number] PRN IV 04/26/17 02:15 04/29/17 02:14 (Norvasc) 10 mg DAILY PO 04/26/17 12:00 04/26/17 14:44 (Betadine 10% Oint) 1 applic DAILY TOPICAL 04/27/17 09:00 Urinary Catheter: No Vascular Central Line Catheter: No A/P Problem List: (1) SVT (supraventricular tachycardia) ICD Code: I47.1 Status: Resolved Plan: Patient was successfully chemically cardioverted with adenosine in emergency department. The patient was admitted and monitored on telemetry during hospital stay. Did not have any repeat SVT episodes. Etiology was consulted. Recommended no medication for SVT given prior history of repeated medication noncompliance. (2) Open wound of right hand ICD Code: S61.401A Status: Acute Plan: This is a chronic wound with patient states that has been present since October of this year Hand specialist has been consulted and evaluated the patient indicating that wound may be secondary to pyoderma gangrenosum, recommended high-dose posterior treatment and wound care. MRI negat jack for osteomyelitis. Continue wound care. - Blood cultures negative. 04/25 Wound cultures obtained and no organisms was seen on Gram stain. Continue Solumedrol 1 gram daily x 5 days and then taper dose slowly over several weeks. Discussed with hand surgery - biopsy planned for Thursday 04/26. Discontinue IV vancomycin. 04/26 Sp biopsy today. await pathology results. Will start patient on prednisone 60 mg po daily with a taper over 7 weeks. Dc antibiotics. Blood cultures negative, wound culture has normal skin reynaldo. Will also start the patient on methotrexate 15 mg daily which the patient will have to be on during and after steroid taper. (3) Leukopenia ICD Code: D72.819 Status: Acute Plan: Unknown etiology this time Resolved - WBC normal today continue to monitor CBC (4) Chronic pain ICD Code: G89.29 Status: Chronic Plan: Did review patient's prescription history on [facility] Resumed patient's home medication to include oxycodone 20 mg every 6 hours as needed, morphine sulfate extended release 15 mg twice daily. - Pain controlled. (5) Steroid-induced hyperglycemia ICD Code: R73.9 Status: Acute Plan: Will place on SSI with insulin Novolog. Monitor accuchecks. 04/26 hemoglobin A1C 5.6 Continue to monitor accuchecks, Continue SSI. (6) HTN (hypertension) ICD Code: I10 Status: Acute Plan: Pretension likely secondary to steroid use. I will start the patient amlodipine 10 mg by mouth daily. Continue to monitor vital signs Assessment and Plan GI prophylaxis: Will add Protonix since patient on high dose steroids now with some abdominal discomfort. DVt Prophylaxis: Lovenox SQ, SCD's Discharge Planning Possible Dc in 1 to 2 days. Patient will need to be followed up [facility], wound care clinic. Discussed the case with corrections caseworker who will work on obtaining patient's assistance for the patient. Problem Qualifiers (1) Open wound of right hand: (2) Chronic pain: Qualified Code: G89.29 - Other chronic pain (3) HTN (hypertension): Qualified Code: I15.8 - Other secondary hypertension Umair Espinosa MD Apr 26, 2017 15:25
[2017-04-26] MEDS: SUCRALFATE 1 GM TAB PO SCH ×2 (16:00→20:23)
[2017-04-26] MEDS ORDERED: METHOTREXATE 2.5 MG TAB PO SCH ×2 (18:00→22:00)
[2017-04-27] VITALS: BP 150/91; PULSE 53; RESP 18; TEMP 97.2; O2SAT 96
[2017-04-27] MEDS: PIPERACIL-TAZO 3.375 GM PREMIX 50 ML IV SCH ×2 (00:16→05:16)
[2017-04-27 04:00] VITALS: BP 151/76; PULSE 66; RESP 18; TEMP 96.3; O2SAT 98
[2017-04-27] MEDS: SUCRALFATE 1 GM TAB PO SCH ×2 (05:57→11:00)
[2017-04-27 08:39] VITALS: BP 187/100; PULSE 80; RESP 19; TEMP 95.7; O2SAT 97
[2017-04-27] MEDS: SODIUM CHLORIDE 0.9% FLUSH 10 ML FLUSH IV FLUSH SCH (09:00)
[2017-04-27] MEDS ORDERED: POVIDONE IODINE 10% OINT 30 GM TUBE TOPICAL SCH (09:00)
[2017-04-27] MEDS ORDERED: predniSONE 20 MG TAB PO SCH (09:00)
[2017-04-27] MEDS: PANTOPRAZOLE SOD 40 MG DELAYED RELEASE TAB PO SCH (09:01)
[2017-04-27] MEDS: ENOXAPARIN SODIUM 40 MG/0.4 ML SYRINGE SQ SCH (09:01)
[2017-04-27] MEDS: MORPHINE SULFATE 15 MG CONTROLLED RELEASE TAB PO SCH (09:01)
[2017-04-27] MEDS ORDERED: DOXAZOSIN MESYLATE 2 MG TAB PO SCH (10:00)
[2017-04-27] MEDS ORDERED: AMLO10 PO (11:09)
[2017-04-27] MEDS ORDERED: OXYC-396 PO (11:09)
[2017-04-27] MEDS ORDERED: MORP1TAB24 PO (11:09)
[2017-04-27] MEDS ORDERED: METH2.5T PO (11:10)
[2017-04-27] MEDS ORDERED: PANT40TA3 PO (11:10)
[2017-04-27] MEDS ORDERED: PRED10 PO (11:10)
[2017-04-27] MEDS ORDERED: CARD2TAB PO (11:10)
[2017-04-27 13:04] VITALS: BP 157/87; PULSE 59; RESP 19; TEMP 97.4; O2SAT 98
--- NOTE | 2017-04-27 14:32 | HHI.DS ---
Discharge Summary Admission Date Apr 21, 2017 at 00:08 Discharge Date: Apr 27, 2017 Admitting Diagnosis cellulitis, SVT (1) SVT (supraventricular tachycardia) ICD Code: I47.1 (2) Open wound of right hand ICD Code: S61.401A (3) Leukopenia ICD Code: D72.819 (4) Chronic pain ICD Code: G89.29 (5) Steroid-induced hyperglycemia ICD Code: R73.9 (6) HTN (hypertension) ICD Code: I10 Procedures None Brief History - From Admission Written by Gerardo Mujica, acting as scribe for Dr. Johnston on 04/21/17 at 11:52. 56 year-old male with known history of chronic pain, chronic wound of the right hand who presented to hospital because of heart racing and palpitations. Patient states that his normal state of health until last evening at approximately 8 PM when he started noticing his heart was racing. He indicates that he has noticed a couple times in the last few weeks. But it remained persistent last night so he came to emergency department for evaluation. Patient was found to have SVTs and was chemically cardioverted last evening with adenosine 6 mg IV. Patient indicates that he has gone to a coal chemist in the past but does not recall the name. Patient was noted to have a wound on his right anterior hand by ER physician. Patient states that this has been persistent since October of this year. Patient indicates that he was given outpatient antibiotics and did improve but does continue to return. He indicates that the original abnormality was secondary to a brown recluse spider bite. Patient denied any chest pain, nausea, vomiting, diaphoresis, lightheadedness, dizziness. He denies any fever, chills. Patient requesting that we continue his pain medication because he ran out of them a day ago. CBC/BMP: 04/24/17 0730 04/26/17 0515 Significant Findings Laboratory Tests Test 04/26/17 05:15 Chloride Level 108 MEQ/L (98-107) Blood Urea Nitrogen 19 MG/DL (7-18) Estimat Glomerular Filtration 87 ML/MIN (>89) Rate Random Glucose 136 MG/DL (74-106) Calcium Level 8.1 MG/DL (8.5-10.1) PE at Discharge GENERAL: Well-developed, well-nourished, in no acute distress. alert and orientated HEENT: Head is normocephalic without any lesions or masses noted. Facial features are symmetric. Eyes: Pupils equal round reactive to light. Extraocular muscles are intact. Conjunctivae were clear. Oropharyngeal: Pharynx without any erythema edema. Tongue is midline without deviation. Buccal mucosa is moist without any masses or lesions NECK: Supple without any masses. Trachea midline no deviation. No JVD, no bruits are appreciated CARDIAC: Regular rhythm, regular rate. S1/S2 are heard. No murmurs gallops or rubs. LUNGS: Clear to auscultation bilaterally. No wheeze, rhonchi or rales. No use of accessory muscles on inspiration or expiration. ABDOMEN: Soft, nontender. Nondistended. Bowel sounds heard in all 4 quadrants. No organomegaly or masses. Negative rebound, negative guarding EXTREMITIES: No edema, pulses are equal bilaterally. No cyanosis or clubbing NEUROLOGY: Mood and affect appear appropriate. Cranial nerves II through XII grossly intact. Muscle strength 5/5 in upper and lower extremities bilaterally. Deep tendon reflexes are 2+ in upper and lower extremities bilaterally. RIGHT HAND: There is a dry ulcer on the dorsal surface of the right hand. Discharge Disposition: Discharge Home Discharge Instructions DIET: Follow Instructions for: Heart Healthy Diet Activities you can perform: Regular-No Restrictions, See Additionl Instruction Other Activity Instructions: hand activity per surgeon Umair Espinosa MD Apr 27, 2017 14:32
[2017-04-27] MEDS ORDERED: VANCOMYCIN TROUGH ONE (14:45)
[2017-04-27 15:07] VITALS: RESP 18
== END 2017-04-27 15:12 | disposition home or self-care (01) | DRG 310 ==
LOC: PHED 22:36 → PHEDA 04-21 00:06 → OBSVTOIN 04-21 00:08 → PH3A 04-21 01:17
PROVIDERS: ADMIT Hospitalist; ATTEND Hospitalist
PROC: 0JBJ0ZX Excision of Right Hand Subcutaneous Tissue and Fascia, Open Approach, Diagnostic (ICD-10-PCS; principal; 2017-04-26 10:49)
DX: I47.1 Supraventricular tachycardia (principal); I10 Essential (primary) hypertension; D64.9 Anemia, unspecified; S61.401A Unspecified open wound of right hand, initial encounter; D72.819 Decreased white blood cell count, unspecified; G89.29 Other chronic pain; I25.2 Old myocardial infarction; M06.9 Rheumatoid arthritis, unspecified; Z79.82 Long term (current) use of aspirin; Z91.19 Patient's noncompliance with other medical treatment and regimen; T38.0X5A Adverse effect of glucocorticoids and synthetic analogues, initial encounter; R73.9 Hyperglycemia, unspecified
CPT/HCPCS: 71010; 73220; 76937; 80048; 80053; 80202; 80307; 82550; 82565; 83036; 83735; 84484; 85025; 85027; 85610; 85730; 86403; 87040; 87070; 87205; 88305; 93005; 93306; 96361; 96374; A9579; J0153; J1650; J2250; J2270; J2405; J2543; J2930; J3010; J3370; J7030; J7040; J7050; J7120; J7512; J8610

== ENCOUNTER 2017-06-08 06:05 | Emergency (ER) | payer SELFPAY ==
[~2017-06-08] VITALS: Ht 182.9 cm; Wt 96.0 kg
[~2017-06-08 06:05] MED LIST changes: +AMLO10 PO; +ASPI81CH CHEW; -BACT800T5 PO; +CARD2TAB PO; -CEPH-460 PO; +CYCL1TAB29 PO; +METH2.5T PO; +MORP1TAB24 PO; +OXYC-396 PO; +PANT40TA3 PO; +PRED10 PO
[2017-06-08 06:14] VITALS: BP 103/64; PULSE 177; RESP 16; TEMP 97.6; O2SAT 97
[2017-06-08] MEDS ORDERED: MOBI15TA PO (06:28)
[2017-06-08 06:30] VITALS: BP 101/82; PULSE 188; RESP 22; O2SAT 98
--- NOTE | 2017-06-08 06:33 | PD ---
HPI Chief Complaint: Cardiac Complaint Time Seen by Provider: 06:13 Travel History International Travel<30 days: No Contact w/Intl Traveler<30days: No Traveled to known affect area: No History of Present Illness HPI The patient is a 56-year-old male who has by his own history has a previous episode of paroxysmal atrial tachycardia. At 4:00 this morning he was awakened by his palpitations of fast heartbeat. He did have some slight discomfort in his chest and some slight shortness of breath. The patient does have a history of cocaine abuse but denies any recent cocaine abuse. He does not smoke and does not drink coffee. He was admitted to this hospital and was prescribed medications for blood pressure but he no longer has a primary care physician and takes only has pain medicines for his chronic back pain. PFSH Past Medical History Arthritis: Yes (RA) Depression: Yes Cancer: No Cardiac Catheterization: Yes Cardiovascular Problems: Yes (SVT) Diabetes: No Diminished Hearing: No Endocrine: No Glaucoma: No Genitourinary: No Hepatitis: No Hiatal Hernia: No Hypertension: Yes Immune Disorder: No Musculoskeletal: Yes (RA) Neurologic: No Psychiatric: No Reproductive: No Respiratory: No Immunizations Current: No Myocardial Infarction: Yes (2006) Thyroid Disease: No Past Surgical History Abdominal Surgery: No Body Medical Devices: Multiple hardware from traumatic injury Cardiac Surgery: No Ear Surgery: No Endocrine Surgery: No Eye Surgery: No Genitourinary Surgery: No Gynecologic Surgery: No Hysterectomy: No Oral Surgery: No Pacemaker: No Thoracic Surgery: No Other Surgery: Yes Social History Alcohol Use: No Tobacco Use: No Substance Use: No Allergies-Medications (Allergen,Severity, Reaction): Coded Allergies: No Known Allergies (Verified , 06/08/17) Reported Meds & Prescriptions Reported Meds & Active Scripts Active Morphine ER (Morphine Sulfate) 15 Mg Tab 15 Mg PO BID Oxycodone (Oxycodone HCl) 20 Mg Tab 20 Mg PO Q6H PRN Reported Mobic (Meloxicam) 15 Mg Tab 15 Mg PO DAILY Aspirin 81 Mg Chew 81 Mg CHEW DAILY Flexeril (Cyclobenzaprine HCl) 10 Mg Tab 10 Mg PO TID Review of Systems Except as stated in HPI: all other systems reviewed are Neg Physical Exam Narrative GENERAL: The patient is alert, oriented 3 in moderate apparent distress with his chest discomfort and shortness of breath. His vital signs show pulse rate of 177, temperature 97.6 but otherwise normal. The blood pressure is borderline normal on the low side of 103/64. SKIN: Focused skin assessment warm/dry. HEAD: Atraumatic. Normocephalic. EYES: Pupils equal and round. No scleral icterus. No injection or drainage. ENT: No nasal bleeding or discharge. Mucous membranes pink and moist. NECK: Trachea midline. No JVD. CARDIOVASCULAR: Paroxysmal atrial tachycardia rhythm. No murmur appreciated. RESPIRATORY: No accessory muscle use. Clear to auscultation. Breath sounds equal bilaterally. GASTROINTESTINAL: Abdomen soft, non-tender, nondistended. Hepatic and splenic margins not palpable. MUSCULOSKELETAL: No obvious deformities. No clubbing. No cyanosis. No edema. NEUROLOGICAL: Awake and alert. No obvious cranial nerve deficits. Motor grossly within normal limits. Normal speech. PSYCHIATRIC: Appropriate mood and affect; insight and judgment normal. Data Data Last Documented VS Vital Signs Date Time Temp Pulse Resp B/P (MAP) Pulse Ox O2 Delivery O2 Flow Rate FiO2 06/08/17 06:36 86 18 133/76 (95) 98 Room Air 06/08/17 06:36 2.00 06/08/17 06:14 97.6 Orders Orders Thyroid Stimulating Hormone (06/08/17 06:33) Complete Blood Count With Diff (06/08/17 06:41) Comprehensive Metabolic Panel (06/08/17 06:41) Ckmb (Isoenzyme) Profile (06/08/17 06:41) Troponin I (06/08/17 06:41) Urinalysis - C+S If Indicated (06/08/17 06:41) Magnesium (Mg) (06/08/17 06:41) Chest, Pa & Lat (06/08/17 06:41) Drug Screen, Random Urine (06/08/17 06:41) Alcohol (Ethanol) (06/08/17 06:41) Electrocardiogram (06/08/17 06:43) MDM Medical Decision Making Medical Screen Exam Complete: Yes Emergency Medical Condition: Yes Medical Record Reviewed: Yes Interpretation(s) The initial EKG shows supraventricular tachycardia with a ventricular rate of [address] depression. After conversion, 4 minutes later, the EKG is normal and shows sinus rhythm with a rate of 79. Differential Diagnosis PAT, hypo-/hyperthyroid, electrolyte disorder, drug abuse-possible cocaine abuse , caffeine abuse Narrative Course The patient converted to normal sinus rhythm shortly after arriving. He has no chest discomfort, shortness of breath. His EKG is normal. At 0650 the patient wanted to sign out AMA rather than give up a urine. He was untruthful to us about his history of cocaine abuse earlier and he may be using cocaine. The patient will also discontinue: As such as Coca-Cola, Sheri Garcia Dew that 10 to stimulate the heart. He will find a primary care physician as soon as possible. Additional Instructions: As we discussed, find a primary care physician as soon as possible. You may need to be on medication to slow down your heart. Hopefully, by discontinuing Coca-Cola and similar drinks and avoiding anything that stimulates your heart this will not come back. Disposition: 07 AGAINST MEDICAL ADVICE Condition: Stable Ferdinand Mujica MD Jun 08, 2017 06:33
[2017-06-08 06:36] VITALS: BP 133/76; PULSE 86; RESP 18; O2SAT 98
--- NOTE | 2017-06-08 13:37 | EKG ---
Date Performed: 06/08/2017 Time Performed: 06:15:33 PTAGE: 56 years EKG: SUPRAVENTRICULAR TACHYCARDIA MODERATE ST DEPRESSION ABNORMAL ECG NO PREVIOUS TRACING Since previous tracing, the supraventricular tachycardia and the ST-s egment changes are new. Mechanism of the tachycardia is likely reentry. Clinical correlation is advis ed. DOCTOR: Gladys Romero Interpretating Date/Time 06/08/2017 13:34:46
--- NOTE | 2017-06-08 13:38 | EKG ---
Date Performed: 06/08/2017 Time Performed: 06:19:13 PTAGE: 56 years EKG: Sinus rhythm NORMAL ECG INTERPRETATION BASED ON A DEFAULT AGE OF 40 YEARS PREVIOUS TRACING 06/08/17 Since the prior tracing, the ST-segment depression and the supr aventricular tachycardia have resolved. DOCTOR: Gladys Romero Interpretating Date/Time 06/08/2017 13:35:51
== END 2017-06-08 06:58 | disposition left against medical advice (07) ==
LOC: PHED 06:05
DX: I47.1 Supraventricular tachycardia (principal)
CPT/HCPCS: 93005; 99283